=== PATIENT | female | born 1990 | race Caucasian/White ===

== ENCOUNTER 2017-03-23 17:42 | Emergency (ER) | payer OTHER, SELFPAY ==
[2017-03-23] MEDS ORDERED: methylPREDNISolone SOD SUCCI 125 MG/2 ML VIAL IM ONE (18:12)
[2017-03-23] MEDS ORDERED: IPRATROPIUM-ALBUTEROL 3 ML NEB INHALATION STA (18:12)
--- NOTE | 2017-03-23 18:18 | ED ---
General Adult HPI - General Chief complaint: Upper Respiratory Infection Stated complaint: Chest congestion/vomiting Time Seen by Provider: 03/23/17 18:06 Source: patient Mode of arrival: ambulatory Limitations: no limitations - History of Present Illness Initial comments: 26-year-old female patient presents to emergency department today with complaints of cough, nasal congestion, and facial pressure 1 month. Patient states that symptoms started about a month ago with nasal congestion and sore throat. Patient states that the cough has persisted. States she is coughing up green to yellow sputum. She states she does feel short of breath with this and has also had some posttussive vomiting on numerous occasions. She states she has had hot and cold flashes with no documented fevers. She states that she still has green nasal drainage with facial pressure. Patient states that she has been coughing so much that her abdominal muscles are sore. She states she is also having some bilateral "kidney pain". States the pain is in her bilateral flank and is a dull aching pain. She believes the pain may be from coughing. Patient denies any recent rash, chest pain, abdominal pain, nausea, diarrhea, constipation, numbness, tingling, dizziness, weakness, hematuria, dysuria, urinary urgency, urinary frequency, headache, visual changes, or any other complaints. Patient does admit to smoking at least 1 pack of cigarettes per day. She states there is a chance she is . - Related Data Previous Rx's Medication Instructions Recorded Albuterol Sulfate [Proair Hfa] 1 - 2 puff INHALATION Q6HR PRN #1 03/23/17 inhaler Amoxicillin/Potassium Clav 1 tab PO Q12HR #20 tab 03/23/17 [Augmentin 875-125 Tablet] methylPREDNISolone [Medrol Dose 4 mg PO DIRECTED #1 pack 03/23/17 Pack] Allergies Allergy/AdvReac Type Severity Reaction Status Date / Time ciprofloxacin [From Cipro] Allergy Rash/Hives Verified 03/23/17 18:55 Review of Systems ROS Statement: Those systems with pertinent positive or pertinent negative responses have been documented in the HPI. ROS Other: All systems not noted in ROS Statement are negative. Past Medical History Past Medical History: No Reported History History of Any Multi-Drug Resistant Organisms: None Reported Past Surgical History: No Surgical Hx Reported Past Psychological History: No Psychological Hx Reported Smoking Status: Current every day smoker Past Alcohol Use History: Occasional Past Drug Use History: None Reported General Exam Limitations: no limitations General appearance: alert, in no apparent distress, other (This is a well- developed, well-nourished female patient no acute distress. Vital signs upon presentation are temperature 98.5F, pulse 107, respirations 18, blood pressure 106/70, pulse ox 96% on room air.) Eye exam: Present: normal appearance, PERRL, EOMI. Absent: scleral icterus, conjunctival injection, periorbital swelling ENT exam: Present: normal exam, normal oropharynx, mucous membranes moist, TM's normal bilaterally Neck exam: Present: normal inspection, full ROM. Absent: tenderness, meningismus, lymphadenopathy Respiratory exam: Present: normal lung sounds bilaterally, wheezes (Scattered expiratory wheezes posterior lung mcclure). Absent: respiratory distress, rales , rhonchi, stridor Cardiovascular Exam: Present: regular rate, normal rhythm, normal heart sounds. Absent: systolic murmur, diastolic murmur, rubs, gallop, clicks GI/Abdominal exam: Present: soft, normal bowel sounds. Absent: distended, tenderness, guarding, rebound, rigid Back exam: Present: normal inspection, CVA tenderness (R), CVA tenderness (L) Neurological exam: Present: alert, oriented X3, CN II-XII intact Psychiatric exam: Present: normal affect, normal mood Skin exam: Present: warm, dry, intact, normal color. Absent: rash Course Vital Signs 03/23/17 03/23/17 03/23/17 17:59 18:53 18:57 Temperature 98.5 F Pulse Rate 107 H 104 H Respiratory 18 16 Rate Blood Pressure 106/70 O2 Sat by Pulse 96 Oximetry 03/23/17 19:06 Temperature Pulse Rate 108 H Respiratory Rate Blood Pressure O2 Sat by Pulse Oximetry Medical Decision Making - Medical Decision Making 26 old female patient presents to emergency department for evaluation of cough, nasal congestion and drainage 1 month. Chest x-ray was negative for any acute process. Symptoms are consistent with a acute sinusitis as well as acute bronchitis. Urinalysis is negative for any acute infection. Patient will be given a prescription for Augmentin for treatment of the sinusitis, she'll be given a Pro Air inhaler and steroids for treatment of bronchitis. She is instructed to follow-up with her primary care physician for recheck in 1-2 days. She is instructed to return here immediately for any new, worsening, or concerning symptoms. - Lab Data Lab Results 03/23/17 03/23/17 Range/Units 18:45 18:45 Urine Color Yellow Urine Appearance Clear (Clear) Urine pH 7.0 (5.0-8.0) Ur Specific [place] 1.018 (1.001-1.035) Urine Protein Trace H (Negative) Urine Glucose (UA) Negative (Negative) Urine Ketones Negative (Negative) Urine Blood Negative (Negative) Urine Nitrite Negative (Negative) Urine Bilirubin Negative (Negative) Urine Urobilinogen 3.0 (<2.0) mg/dL Ur Leukocyte Esterase Small H (Negative) Urine RBC 1 (0-5) /hpf Urine WBC 3 (0-5) /hpf Ur Squamous Epith Cells 4 (0-4) /hpf Urine Mucus Few H (None) /hpf Urine HCG, Qual Not Detected (Not Detectd) - Radiology Data Radiology results: report reviewed, image reviewed Frontal and lateral views of the chest are obtained, heart mediastinum are normal. Lungs are clear. Diaphragm is normal. Bony thorax is intact. Impression by Dr. Cabrera shows normal chest. Disposition Clinical Impression: Sinusitis, Bronchitis Disposition: HOME SELF-CARE Condition: Good Instructions: Sinusitis (ED), Acute Bronchitis (ED) Additional Instructions: Rest. Increase fluids. Take medications as directed. Follow up with your primary care physician in 1-2 days for a recheck. Return here immediately for any new, worsening, or concerning symptoms. Prescriptions: Albuterol Sulfate [Proair Hfa] 1 - 2 puff INHALATION Q6HR PRN #1 inhaler PRN Reason: Wheezing Amoxicillin/Potassium Clav [Augmentin 875-125 Tablet] 1 tab PO Q12HR #20 tab methylPREDNISolone [Medrol Dose Pack] 4 mg PO DIRECTED #1 pack Referrals: None,Stated [Primary Care Provider] - 1-2 days Time of Disposition: 19:25
[2017-03-23 18:52] LABS: Appearance,Urine Clear (Clear); Bilirubin,Urine Negative (Negative); Glucose,Urine (UA) Negative (Negative); Ketones,Urine Negative (Negative); Leukocyte Esterase,Urine Small (Negative); Mucus,Urine Few /hpf; Nitrite,Urine Negative (Negative); Particle Count 4923; Protein,Urine Trace (Negative); RBC,Urine 1 /hpf (0-5); Specific Gravity,Urine 1.018 (1.001-1.035); Squamous Epithelial Cell,Urine 4 /hpf (0-4); UA Billing (MACRO vs. MICRO) MICRO; WBC,Urine 3 /hpf (0-5)
--- NOTE | 2017-03-23 19:19 | XR ---
EXAMINATION TYPE: XR chest 2V DATE OF EXAM: 03/23/2017 COMPARISON: NONE HISTORY: Cough TECHNIQUE: Frontal and lateral views of the chest are obtained. FINDINGS: Heart and mediastinum are normal. Lungs are clear. Diaphragm is normal. Bony thorax is int act. IMPRESSION: Normal chest
[2017-03-23 20:16] VITALS: BP 110/72; PULSE 102; RESP 20; TEMP 98.6
== END 2017-03-23 20:16 | disposition home or self-care (01) ==
LOC: EC 17:42
DX: J32.9 Chronic sinusitis, unspecified (principal); J40 Bronchitis, not specified as acute or chronic; N23 Unspecified renal colic; F17.200 Nicotine dependence, unspecified, uncomplicated; Z88.1 Allergy status to other antibiotic agents
CPT/HCPCS: 99284 ×2; 96372 ×2; 94640; 81001; 81025; 71020; J2930

== ENCOUNTER 2018-02-25 17:50 | Inpatient (IN) | payer OTHER ==
[2018-02-25] MEDS ORDERED: IBUPROFEN 600 MG TAB PO STA (19:02)
[2018-02-25] MEDS ORDERED: ACETAMINOPHEN TAB 500 MG TAB PO STA (19:02)
[2018-02-25] MEDS ORDERED: ceFAZolin IN SWFI 2 GM/20 ML SYRINGE IVP STA (19:03)
--- NOTE | 2018-02-25 19:07 | ED ---
Skin/Abscess/FB HPI - General Chief complaint: Skin/Abscess/Foreign Body Stated complaint: Fever/dizzy/rt breast pain Time Seen by Provider: 02/25/18 18:55 Source: patient, RN notes reviewed, old records reviewed Mode of arrival: ambulatory Limitations: no limitations - History of Present Illness Initial comments: This Patient is a 27-year-old female 3 weeks post with chief complaint of right breast mastitis. Patient states that the redness and the lump her breast surgeon on . She reports that she has been feeling progressively worse. She's had a high fever and felt dizzy. Patient states that she's not had any recent Motrin or Tylenol. She is breast-feeding. She has been feeding from the breast despite the infection. Patient states that she has been very dizzy and lightheaded prior to arrival. As is patient's third . - Related Data Previous Rx's Medication Instructions Recorded Albuterol Sulfate [Proair Hfa] 1 - 2 puff INHALATION Q6HR PRN #1 03/23/17 inhaler Amoxicillin/Potassium Clav 1 tab PO Q12HR #20 tab 03/23/17 [Augmentin 875-125 Tablet] methylPREDNISolone [Medrol Dose 4 mg PO DIRECTED #1 pack 03/23/17 Pack] Allergies Allergy/AdvReac Type Severity Reaction Status Date / Time ciprofloxacin [From Cipro] Allergy Rash/Hives Verified 02/25/18 18:35 Review of Systems ROS Statement: Those systems with pertinent positive or pertinent negative responses have been documented in the HPI. ROS Other: All systems not noted in ROS Statement are negative. Past Medical History Past Medical History: No Reported History History of Any Multi-Drug Resistant Organisms: None Reported Past Surgical History: No Surgical Hx Reported Past Psychological History: No Psychological Hx Reported Smoking Status: Former smoker Past Alcohol Use History: None Reported Past Drug Use History: None Reported General Exam - General Exam Comments Initial Comments: Patient is a pleasant 27-year-old female. Alert and oriented. No significant distress. Limitations: no limitations General appearance: alert, in no apparent distress Head exam: Present: atraumatic, normocephalic, normal inspection Eye exam: Present: normal appearance, PERRL, EOMI. Absent: scleral icterus, conjunctival injection, periorbital swelling ENT exam: Present: normal exam, mucous membranes moist Neck exam: Present: normal inspection. Absent: tenderness, meningismus, lymphadenopathy Respiratory exam: Present: normal lung sounds bilaterally, other (Patient has evidence of cellulitis over the right breast measuring approximately 10 cm x 12 cm. Palpable abscess.). Absent: respiratory distress, wheezes, rales, rhonchi , stridor Cardiovascular Exam: Present: regular rate, normal rhythm, normal heart sounds. Absent: systolic murmur, diastolic murmur, rubs, gallop, clicks GI/Abdominal exam: Present: soft, normal bowel sounds. Absent: distended, tenderness, guarding, rebound, rigid Extremities exam: Present: normal inspection, full ROM, normal capillary refill. Absent: tenderness, pedal edema, joint swelling, calf tenderness Back exam: Present: normal inspection Neurological exam: Present: alert, oriented X3, CN II-XII intact Psychiatric exam: Present: normal affect, normal mood Skin exam: Present: warm, dry, intact, normal color. Absent: rash Course Vital Signs 02/25/18 02/25/18 02/25/18 18:32 19:25 19:30 Temperature 103.1 F H 103 F H Pulse Rate 126 H 123 H 96 Respiratory 18 18 18 Rate Blood Pressure 100/51 127/62 127/62 O2 Sat by Pulse 100 97 100 Oximetry 02/25/18 02/25/18 20:30 21:45 Temperature 99.5 F Pulse Rate 96 89 Respiratory 18 14 Rate Blood Pressure 100/58 100/59 O2 Sat by Pulse 96 97 Oximetry Medical Decision Making - Medical Decision Making Patient is a 27-year-old female 3 weeks , female. Patient has [employer] at this time. Patient hurts emergency room today with fever 103 concern for right breast mastitis. She reports no vaginal discharge or abdominal pain. Pelvic exam was performed and shows no significant tenderness or abnormal discharge. We did do cultures. Urinalysis is showing signs of infection. Urine culture obtained. She does have evidence of right breast mastitis. Patient source of fever is likely related to mastitis as well as the UTI. Patient was started on Initially We Did Switched to Zos[employer] for Better Coverage. Patient Was Admitted Time. Discussed Case with [employer]. She Also Recommends a Consult [employer]. - Lab Data Result diagrams: 02/25/18 19:14 02/25/18 19:14 Lab Results 02/25/18 02/25/18 02/25/18 Range/Units 19:14 19:14 19:14 WBC 11.5 H (3.8-10.6) k/uL RBC 4.10 (3.80-5.40) m/uL Hgb 11.2 L (11.4-16.0) gm/dL Hct 33.3 L (34.0-46.0) % MCV 81.3 (80.0-100.0) fL MCH 27.4 (25.0-35.0) pg MCHC 33.7 (31.0-37.0) g/dL RDW 13.7 (11.5-15.5) % Plt Count 217 (150-450) k/uL Neutrophils % 79 % Lymphocytes % 16 % Monocytes % 4 % Eosinophils % 0 % Basophils % 0 % Neutrophils # 9.0 H (1.3-7.7) k/uL Lymphocytes # 1.8 (1.0-4.8) k/uL Monocytes # 0.4 (0-1.0) k/uL Eosinophils # 0.0 (0-0.7) k/uL Basophils # 0.0 (0-0.2) k/uL PT (9.0-12.0) sec INR (<1.2) APTT (22.0-30.0) sec Sodium 128 L (137-145) mmol/L Potassium 3.4 L (3.5-5.1) mmol/L Chloride 95 L (98-107) mmol/L Carbon Dioxide 22 (22-30) mmol/L Anion Gap 11 mmol/L BUN 7 (7-17) mg/dL Creatinine 0.51 L (0.52-1.04) mg/dL Est GFR (CKD-EPI)AfAm >90 (>60 ml/min/1.73 sqM) Est GFR (CKD-EPI)NonAf >90 (>60 ml/min/1.73 sqM) Glucose 109 H (74-99) mg/dL Plasma Lactic Acid Sharath 0.9 (0.7-2.0) mmol/L Calcium 8.4 (8.4-10.2) mg/dL Total Bilirubin 0.5 (0.2-1.3) mg/dL AST 28 (14-36) U/L ALT 36 (9-52) U/L Alkaline Phosphatase 95 (38-126) U/L Total Protein 6.6 (6.3-8.2) g/dL Albumin 3.6 (3.5-5.0) g/dL Urine Color Urine Appearance (Clear) Urine pH (5.0-8.0) Ur Specific [place] (1.001-1.035) Urine Protein (Negative) Urine Glucose (UA) (Negative) Urine Ketones (Negative) Urine Blood (Negative) Urine Nitrite (Negative) Urine Bilirubin (Negative) Urine Urobilinogen (<2.0) mg/dL Ur Leukocyte Esterase (Negative) Urine RBC (0-5) /hpf Urine WBC (0-5) /hpf Ur Squamous Epith Cells (0-4) /hpf Amorphous Sediment (None) /hpf Urine Bacteria (None) /hpf Urine Mucus (None) /hpf Trichomonas Ag (Rapid) (Negative) 02/25/18 02/25/18 02/25/18 Range/Units 19:14 20:30 20:32 WBC (3.8-10.6) k/uL RBC (3.80-5.40) m/uL Hgb (11.4-16.0) gm/dL Hct (34.0-46.0) % MCV (80.0-100.0) fL MCH (25.0-35.0) pg MCHC (31.0-37.0) g/dL RDW (11.5-15.5) % Plt Count (150-450) k/uL Neutrophils % % Lymphocytes % % Monocytes % % Eosinophils % % Basophils % % Neutrophils # (1.3-7.7) k/uL Lymphocytes # (1.0-4.8) k/uL Monocytes # (0-1.0) k/uL Eosinophils # (0-0.7) k/uL Basophils # (0-0.2) k/uL PT 11.5 (9.0-12.0) sec INR 1.2 H (<1.2) APTT 33.7 H (22.0-30.0) sec Sodium (137-145) mmol/L Potassium (3.5-5.1) mmol/L Chloride (98-107) mmol/L Carbon Dioxide (22-30) mmol/L Anion Gap mmol/L BUN (7-17) mg/dL Creatinine (0.52-1.04) mg/dL Est GFR (CKD-EPI)AfAm (>60 ml/min/1.73 sqM) Est GFR (CKD-EPI)NonAf (>60 ml/min/1.73 sqM) Glucose (74-99) mg/dL Plasma Lactic Acid Sharath (0.7-2.0) mmol/L Calcium (8.4-10.2) mg/dL Total Bilirubin (0.2-1.3) mg/dL AST (14-36) U/L ALT (9-52) U/L Alkaline Phosphatase (38-126) U/L Total Protein (6.3-8.2) g/dL Albumin (3.5-5.0) g/dL Urine Color Yellow Urine Appearance Cloudy H (Clear) Urine pH 6.0 (5.0-8.0) Ur Specific [place] 1.011 (1.001-1.035) Urine Protein 1+ H (Negative) Urine Glucose (UA) Negative (Negative) Urine Ketones 2+ H (Negative) Urine Blood Moderate H (Negative) Urine Nitrite Negative (Negative) Urine Bilirubin Negative (Negative) Urine Urobilinogen <2.0 (<2.0) mg/dL Ur Leukocyte Esterase Large H (Negative) Urine RBC 1 (0-5) /hpf Urine WBC 79 H (0-5) /hpf Ur Squamous Epith Cells 30 H (0-4) /hpf Amorphous Sediment Rare H (None) /hpf Urine Bacteria Occasional H (None) /hpf Urine Mucus Rare H (None) /hpf Trichomonas Ag (Rapid) Negative (Negative) 02/25/18 19:51 EKG performed at 1941 shows sinus tachycardia with otherwise normal EKG. Ventricular rate of 109 bpm. MD interval is 162 ms. QRS duration 84. QT QTc is 354/476 most seconds. No evidence of ST elevation or T-wave inversion. No evidence of atrial or ventricular arrhythmias. - Radiology Data Radiology results: report reviewed No discrete solid or cystic mass identified in the right breast. No evidence of fluid collection. Normal chest x-ray no acute changes. Disposition Clinical Impression: Mastitis, Sepsis, UTI (urinary tract infection) Disposition: ADMITTED IP TO THIS [facility] Condition: Good Additional Instructions: Patient has follow-up with primary care physician. Return Referrals: None,Stated [Primary Care Provider] - 1-2 days Time of Disposition: 22:06
[2018-02-25] MEDS: SODIUM CHLORIDE 0.9% 1,000 ML IV SCH (19:23)
[2018-02-25 19:25] LABS: Basophils % (A) 0 %; Eosinophils % (A) 0 %; HCT 33.3 % (34.0-46.0); HGB 11.2 gm/dL (11.4-16.0); Lymphocytes # (A) 1.8 k/uL (1.0-4.8); Lymphocytes % (A) 16 %; MCH 27.4 pg (25.0-35.0); MCHC 33.7 g/dL (31.0-37.0); MCV 81.3 fL (80.0-100.0); Mean Platelet Volume 6.9; Monocytes # (A) 0.4 k/uL (0-1.0); Monocytes % (A) 4 %; Neutrophils % (A) 79 %; Platelet Count 217 k/uL (150-450); RDW 13.7 % (11.5-15.5); WBC 11.5 k/uL (3.8-10.6)
[2018-02-25] MEDS: SODIUM CHLORIDE 0.9% 500 ML IV SCH ×4 (19:25→21:35)
[2018-02-25 19:35] LABS: ALT 36 U/L (9-52); AST 28 U/L (14-36); Albumin 3.6 g/dL (3.5-5.0); Alkaline Phosphatase 95 U/L (38-126); Anion Gap 11 mmol/L; Blood Urea Nitrogen 7 mg/dL (7-17); Calcium 8.4 mg/dL (8.4-10.2); Carbon Dioxide 22 mmol/L (22-30); Chloride 95 mmol/L (98-107); Glucose 109 mg/dL (74-99); Potassium 3.4 mmol/L (3.5-5.1); Sodium 128 mmol/L (137-145); Total Bilirubin 0.5 mg/dL (0.2-1.3); Total Protein 6.6 g/dL (6.3-8.2)
[2018-02-25 19:38] LABS: INR 1.2 (<1.2); Partial Thromboplastin Time 33.7 sec (22.0-30.0); Prothrombin Time 11.5 sec (9.0-12.0)
--- NOTE | 2018-02-25 19:57 | XR ---
EXAMINATION TYPE: XR chest 2V DATE OF EXAM: 02/25/2018 COMPARISON: 03/23/2017 HISTORY: Fever TECHNIQUE: Frontal and lateral views of the chest are obtained. FINDINGS: Heart and mediastinum are normal. Lungs are clear. Diaphragm is normal. Bony thorax appear s intact. There are chest leads. IMPRESSION: Normal chest. No change.
--- NOTE | 2018-02-25 20:23 | USB ---
EXAMINATION TYPE: US breast limited RT DATE OF EXAM: 02/25/2018 COMPARISON: NONE CLINICAL HISTORY: Pain. Right breast pain and redness x 3 days. Fever patient is currently nursing rodriguez d a baby 3 weeks ago. Limited exam patient to follow up at [facility]. No abscess visualized on exam. IMPRESSION: No discrete solid or cystic masses identified. No evidence of a discrete fluid collectio n.
[2018-02-25 20:50] LABS: Amorphous Sediment,Urine Rare /hpf; Appearance,Urine Cloudy (Clear); Bacteria,Urine Occasional /hpf; Bilirubin,Urine Negative (Negative); Blood,Urine Moderate (Negative); Color,Urine Yellow; Glucose,Urine (UA) Negative (Negative); Ketones,Urine 2+ (Negative); Leukocyte Esterase,Urine Large (Negative); Mucus,Urine Rare /hpf; Nitrite,Urine Negative (Negative); Protein,Urine 1+ (Negative); RBC,Urine 1 /hpf (0-5); Specific Gravity,Urine 1.011 (1.001-1.035); Squamous Epithelial Cell,Urine 30 /hpf (0-4); Urobilinogen,Urine <2.0 mg/dL (<2.0); WBC,Urine 79 /hpf (0-5)
[2018-02-25] MEDS ORDERED: PIPERACILLIN-TAZOBACTAM 3.375 GM in DEXTROSE/WATER 1 50ML.BAG IVPB STA (21:34)
[2018-02-25] MEDS ORDERED: Acetaminophen-Codeine 300-30mg TAB PO PRN (22:06)
[2018-02-25] MEDS ORDERED: MORPHINE SULFATE 4 MG/ML SYRINGE IV PRN (22:06)
[2018-02-25] MEDS ORDERED: NALOXONE 0.4 MG/ML 1 ML VIAL IV PRN (22:06)
[2018-02-25] MEDS ORDERED: ACETAMINOPHEN TAB 325 MG TAB PO PRN (22:06)
[2018-02-25] MEDS ORDERED: ONDANSETRON 4 MG/2 ML VIAL IVP PRN (22:06)
[2018-02-25 23:40] VITALS: BMI 28.5
[2018-02-26] MEDS: SODIUM CHLORIDE 0.9% 1,000 ML IV SCH ×3 (01:36→21:51)
[2018-02-26] MEDS ORDERED: PANTOPRAZOLE 40 MG/10 ML VIAL IV SCH (09:00)
--- NOTE | 2018-02-26 10:07 | P.OBCN ---
History of Present Illness Consult date: 02/26/18 Reason for consult: other (3 weeks , no care, home delivery) Chief complaint: Fever, chills, mastitis, 3 weeks status post normal spontaneous vaginal del History of present illness: This is a pleasant 27-year-old 3 para 3003 that presents to [facility] ER with complaints of not feeling well. Patient stated high fever at home with concerns for mastitis. Patient was noted to be lightheaded on initial exam. She is noted to be 3 weeks from a normal spontaneous vaginal delivery at home. Patient states she had limited care in the beginning of the and the discontinued secondary to insurance reasons. Patient denies any complaints with the or concerns with delivery. She states her lochia has been minimal and up until now she was breast-feeding without difficulty. She has breastfed her other children without difficulty. Mood is discussed in detail and she states that she does struggle with depression after each childbirth and declines any treatment at this time, she states that improves after she discontinues breast-feeding. Review of Systems Constitutional: Reports fever, Reports lethargy, Reports weakness Breasts: Reports as per HPI, Reports breast feeding Cardiovascular: Denies leg edema Respiratory: Denies cough, Denies dyspnea Gastrointestinal: Denies constipation, Denies diarrhea Genitourinary: Denies abnormal vaginal bleeding Past Medical History Past Medical History: Asthma History of Any Multi-Drug Resistant Organisms: None Reported Past Surgical History: No Surgical Hx Reported Past Anesthesia/Blood Transfusion Reactions: No Reported Reaction Past Psychological History: No Psychological Hx Reported Smoking Status: Former smoker Past Alcohol Use History: None Reported Past Drug Use History: None Reported - Past Family History Mother Family Medical History: No Reported History Father Family Medical History: No Reported History Medications and Allergies Home Medications Medication Instructions Recorded Confirmed Type No Known Home Medications 02/25/18 02/25/18 History Allergies Allergy/AdvReac Type Severity Reaction Status Date / Time ciprofloxacin [From Cipro] Allergy Rash/Hives Verified 02/25/18 22:43 Exam Osteopathic Statement: *. No significant issues noted on an osteopathic structural exam other than those noted in the History and Physical/Consult. Vital Signs Temp Pulse Pulse Resp BP BP Pulse Ox 02/26/18 04:00 97.1 F L 02/25/18 23:36 97.9 F 88 16 96/59 96 02/25/18 22:34 85 18 98/56 99 02/25/18 21:45 99.5 F 89 14 100/59 97 02/25/18 20:30 96 18 100/58 96 02/25/18 19:30 96 18 127/62 100 02/25/18 19:25 103 F H 123 H 18 127/62 97 02/25/18 18:32 103.1 F H 126 H 18 100/51 100 Intake and Output 02/25/18 02/26/18 02/26/18 22:59 06:59 14:59 Other: # Voids 1 Weight 73.482 kg 75.3 kg - OBG Physical Exam Breast: Differential she is currently pumping Abdomen: Soft, nontender Results Result Diagrams: 02/25/18 19:14 02/25/18 19:14 Abnormal Lab Results - Last 24 Hours (Table) 02/25/18 02/25/18 02/25/18 Range/Units 19:14 19:14 19:14 WBC 11.5 H (3.8-10.6) k/uL Hgb 11.2 L (11.4-16.0) gm/dL Hct 33.3 L (34.0-46.0) % Neutrophils # 9.0 H (1.3-7.7) k/uL INR 1.2 H (<1.2) APTT 33.7 H (22.0-30.0) sec Sodium 128 L (137-145) mmol/L Potassium 3.4 L (3.5-5.1) mmol/L Chloride 95 L (98-107) mmol/L Creatinine 0.51 L (0.52-1.04) mg/dL Glucose 109 H (74-99) mg/dL Urine Appearance (Clear) Urine Protein (Negative) Urine Ketones (Negative) Urine Blood (Negative) Ur Leukocyte Esterase (Negative) Urine WBC (0-5) /hpf Ur Squamous Epith Cells (0-4) /hpf Amorphous Sediment (None) /hpf Urine Bacteria (None) /hpf Urine Mucus (None) /hpf 02/25/18 Range/Units 20:32 WBC (3.8-10.6) k/uL Hgb (11.4-16.0) gm/dL Hct (34.0-46.0) % Neutrophils # (1.3-7.7) k/uL INR (<1.2) APTT (22.0-30.0) sec Sodium (137-145) mmol/L Potassium (3.5-5.1) mmol/L Chloride (98-107) mmol/L Creatinine (0.52-1.04) mg/dL Glucose (74-99) mg/dL Urine Appearance Cloudy H (Clear) Urine Protein 1+ H (Negative) Urine Ketones 2+ H (Negative) Urine Blood Moderate H (Negative) Ur Leukocyte Esterase Large H (Negative) Urine WBC 79 H (0-5) /hpf Ur Squamous Epith Cells 30 H (0-4) /hpf Amorphous Sediment Rare H (None) /hpf Urine Bacteria Occasional H (None) /hpf Urine Mucus Rare H (None) /hpf Microbiology - Last 24 Hours (Table) 02/25/18 20:30 Genital Culture - Preliminary Cervix 02/25/18 20:32 Urine Culture - Preliminary Urine,Clean Catch Assessment and Plan (1) Status post vaginal delivery Current Visit: Yes Status: Acute Code(s): BOU8648 - SNOMED Code(s): 780391111 (2) No care in current Current Visit: Yes Status: Acute Code(s): O09.30 - SUPRVSN OF PREG W INSUFFICIENT ANTENAT CARE, UNSP TRIMESTER SNOMED Code(s): 6902273977094 (3) depression Current Visit: Yes Status: Acute Code(s): F53 - PUERPERAL PSYCHOSIS SNOMED Code(s): 77754476 (4) Mastitis Current Visit: Yes Status: Acute Code(s): N61.0 - MASTITIS WITHOUT ABSCESS SNOMED Code(s): 41555838 (5) Sepsis Current Visit: Yes Status: Acute Code(s): A41.9 - SEPSIS, UNSPECIFIED ORGANISM SNOMED Code(s): 25403547 (6) UTI (urinary tract infection) Current Visit: Yes Status: Acute Code(s): N39.0 - URINARY TRACT INFECTION, SITE NOT SPECIFIED SNOMED Code(s): 96352863 Plan: care is discussed. Patient's depression score is discussed and she declines any treatment for depression symptoms. Labs and vital signs are reviewed with patient and she states she is feeling slightly better but still complains of lightheadedness. Order slip is given to the nurse for electric breast pump. Thank you for this kind consult please reconsult if necessary
[2018-02-26] MEDS: PIPERACILLIN-TAZOBACTAM 3.375 GM in DEXTROSE/WATER 1 50ML.BAG IVPB SCH ×2 (16:42→23:55)
[2018-02-26 16:49] LABS: Anion Gap 6 mmol/L; Blood Urea Nitrogen 7 mg/dL (7-17); Calcium 8.1 mg/dL (8.4-10.2); Carbon Dioxide 21 mmol/L (22-30); Chloride 113 mmol/L (98-107); Glucose 94 mg/dL (74-99); Potassium 3.6 mmol/L (3.5-5.1); Sodium 140 mmol/L (137-145)
--- NOTE | 2018-02-26 20:30 | P.HPIM ---
History of Present Illness with a pleasant 27 yo F with pmh of asthma who presents of s/s of right breast mastitis, pt is , last one was about 3 wks ago as normal vaginal dilevery at home , she was breast feeding her child till about 4-5 days ago when she start complaining from her right breast which became progressively painful and swollen , associated with fever and chills over the last two days. pt is not breast feeding her baby. pt also complains from some dyspnea and dry coughing . labs on admission showing wbc of 11.5, Hb 11.2. Na 128 got corrected to 140, K 3.6. cr: 0.49. pt denies dysuria or change in urine frequency, her UA is suggestive of UTI, UC is pending on admission . pt is on antibiotic anyway. pt was feeling tearful , no intension to hurt self, pt has been evaluated by OB/ SWAT TEAM MEMBER team and pt denies therapy stating usually it resolves on it own. pt denies therapy to me too. Review of Systems REVIEW OF SYSTEMS: CONSTITUTIONAL: No fever, no malaise, no fatigue. HEENT: No recent visual problems or hearing problems. Denied any sore throat. CARDIOVASCULAR: No orthopnea, PND, no palpitations, no syncope. PULMONARY: No shortness of breath, no cough, no hemoptysis. GASTROINTESTINAL: No diarrhea, no nausea, no vomiting, no abdominal pain. Normoactive bowel sounds. NEUROLOGICAL: No headaches, no weakness, no numbness. HEMATOLOGICAL: Denies any bleeding or petechiae. GENITOURINARY: Denies any burning micturition, frequency, or urgency. MUSCULOSKELETAL/RHEUMATOLOGICAL: Denies any joint pain, swelling, or any muscle pain. ENDOCRINE: Denies any polyuria or polydipsia. medications : tylenol 650 mg , motrin 400 mg, teylenol #3 , morphine 4 mg iv, zofran 4 mg, zosyn 3.375 mg, protonix 40 mg Past Medical History Past Medical History: Asthma History of Any Multi-Drug Resistant Organisms: None Reported Past Surgical History: No Surgical Hx Reported Past Anesthesia/Blood Transfusion Reactions: No Reported Reaction Past Psychological History: No Psychological Hx Reported Smoking Status: Former smoker Past Alcohol Use History: None Reported Past Drug Use History: None Reported - Past Family History Mother Family Medical History: No Reported History Father Family Medical History: No Reported History Medications and Allergies Home Medications Medication Instructions Recorded Confirmed Type No Known Home Medications 02/25/18 02/25/18 History Allergies Allergy/AdvReac Type Severity Reaction Status Date / Time ciprofloxacin [From Cipro] Allergy Rash/Hives Verified 02/25/18 22:43 Physical Exam Vitals: Vital Signs Temp Pulse Pulse Resp BP BP Pulse Ox 02/26/18 12:35 98.1 F 83 17 105/70 99 02/26/18 09:25 97.8 F 92 12 96/64 98 02/26/18 04:00 97.1 F L 02/25/18 23:36 97.9 F 88 16 96/59 96 02/25/18 22:34 85 18 98/56 99 02/25/18 21:45 99.5 F 89 14 100/59 97 02/25/18 20:30 96 18 100/58 96 Intake and Output 02/26/18 02/26/18 02/26/18 06:59 14:59 22:59 Other: # Voids 1 3 # Bowel Movements 1 Weight 75.3 kg Physical exam ( done in the preence of the bed side MAYRA Villa, and upon pt permission) GENERAL: The patient is alert and oriented x3, not in any acute distress. Well developed, well nourished. HEENT: Pupils are round and equally reacting to light. EOMI. No scleral icterus. No conjunctival pallor. Normocephalic, atraumatic. No pharyngeal erythema. No thyromegaly. CARDIOVASCULAR: S1 and S2 present. No murmurs, rubs, or gallops. PULMONARY: Chest is clear to auscultation, no wheezing or crackles. -Right Breast showing erthema ,tenderness and swelling around the nipple , no open wound , no purulent discharge , No right axillary LAP ABDOMEN: Soft, nontender, nondistended, normoactive bowel sounds. No palpable organomegaly. MUSCULOSKELETAL: No joint swelling or deformity. EXTREMITIES: No cyanosis, clubbing, or pedal edema. NEUROLOGICAL: Gross neurological examination did not reveal any focal deficits. SKIN: No rashes. Results CBC & Chem 7: 02/25/18 19:14 02/26/18 16:26 Labs: Abnormal Lab Results - Last 24 Hours (Table) 02/25/18 02/25/18 02/25/18 Range/Units 19:14 19:14 19:14 WBC 11.5 H (3.8-10.6) k/uL Hgb 11.2 L (11.4-16.0) gm/dL Hct 33.3 L (34.0-46.0) % Neutrophils # 9.0 H (1.3-7.7) k/uL INR 1.2 H (<1.2) APTT 33.7 H (22.0-30.0) sec Sodium 128 L (137-145) mmol/L Potassium 3.4 L (3.5-5.1) mmol/L Chloride 95 L (98-107) mmol/L Carbon Dioxide (22-30) mmol/L Creatinine 0.51 L (0.52-1.04) mg/dL Glucose 109 H (74-99) mg/dL Calcium (8.4-10.2) mg/dL Urine Appearance (Clear) Urine Protein (Negative) Urine Ketones (Negative) Urine Blood (Negative) Ur Leukocyte Esterase (Negative) Urine WBC (0-5) /hpf Ur Squamous Epith Cells (0-4) /hpf Amorphous Sediment (None) /hpf Urine Bacteria (None) /hpf Urine Mucus (None) /hpf 02/25/18 02/26/18 Range/Units 20:32 16:26 WBC (3.8-10.6) k/uL Hgb (11.4-16.0) gm/dL Hct (34.0-46.0) % Neutrophils # (1.3-7.7) k/uL INR (<1.2) APTT (22.0-30.0) sec Sodium (137-145) mmol/L Potassium (3.5-5.1) mmol/L Chloride 113 H (98-107) mmol/L Carbon Dioxide 21 L (22-30) mmol/L Creatinine 0.49 L (0.52-1.04) mg/dL Glucose (74-99) mg/dL Calcium 8.1 L (8.4-10.2) mg/dL Urine Appearance Cloudy H (Clear) Urine Protein 1+ H (Negative) Urine Ketones 2+ H (Negative) Urine Blood Moderate H (Negative) Ur Leukocyte Esterase Large H (Negative) Urine WBC 79 H (0-5) /hpf Ur Squamous Epith Cells 30 H (0-4) /hpf Amorphous Sediment Rare H (None) /hpf Urine Bacteria Occasional H (None) /hpf Urine Mucus Rare H (None) /hpf Microbiology - Last 24 Hours (Table) 02/25/18 20:30 Genital Culture - Preliminary Cervix 02/25/18 20:32 Urine Culture - Preliminary Urine,Clean Catch Thrombosis Risk Factor Assmnt - Choose All That Apply Any of the Below Risk Factors Present?: Yes Each Factor Represents 1 point: or Other Risk Factors: No Thrombosis Risk Factor Assessment Total Risk Factor Score: 1 Thrombosis Risk Factor Assessment Level: Low Risk Assessment and Plan Assessment: SIRS, with leukocytosis and fever on admission right breast mastitis sepsis secondary to above s/p spontaneous vaginal delivery 3 wks ago post- depression hyponatremia possible UTI since admission Plan: pt is pleasant 27 yo F who presents with right mastitis. pt is treated with abx and iv fluids as pt was hypotenisive and dehydrated on admission . c/w iv fluids and zosyn . call ID consult . pt moimarylin for her s/s of depression , pt denies treatment. GAS ENGINE OPERATOR GENERATORS input is appreciated . continue with same treatment , continue with symptotmatic treatment . resume home medicaiton . GI and DVT prophylaxis , and further recommendation is based upon pt clinical progress DVT px heparin GI px pepcid
[2018-02-26] MEDS: FAMOTIDINE 20 MG/2 ML VIAL IV SCH (21:52)
[2018-02-26] MEDS: HEPARIN SODIUM,PORCINE 5,000 UNIT/ML 1 ML VIAL SQ SCH (21:56)
[2018-02-27] MEDS: IBUPROFEN 400 MG TAB PO PRN (07:25)
[2018-02-27 07:29] LABS: Basophils % (A) 0 %; Eosinophils # (A) 0.2 k/uL (0-0.7); Eosinophils % (A) 4 %; HCT 27.7 % (34.0-46.0); Hypochromasia Slight; Lymphocytes # (A) 1.7 k/uL (1.0-4.8); Lymphocytes % (A) 35 %; MCH 26.8 pg (25.0-35.0); MCHC 32.8 g/dL (31.0-37.0); MCV 81.6 fL (80.0-100.0); Mean Platelet Volume 7.9; Monocytes # (A) 0.3 k/uL (0-1.0); Monocytes % (A) 6 %; Neutrophils # (A) 2.5 k/uL (1.3-7.7); Neutrophils % (A) 52 %; Platelet Count 210 k/uL (150-450); RBC 3.39 m/uL (3.80-5.40); RDW 14.1 % (11.5-15.5); WBC 4.8 k/uL (3.8-10.6)
[2018-02-27] MEDS ORDERED: PANTOPRAZOLE 40 MG TABLET PO SCH (07:30)
[2018-02-27 07:38] LABS: HGB 9.1 gm/dL (11.4-16.0)
[2018-02-27] MEDS: SODIUM CHLORIDE 0.9% 1,000 ML IV SCH ×3 (07:57→17:48)
[2018-02-27 07:58] LABS: Anion Gap 7 mmol/L; Blood Urea Nitrogen 3 mg/dL (7-17); Carbon Dioxide 24 mmol/L (22-30); Chloride 110 mmol/L (98-107); Glucose 97 mg/dL (74-99); Potassium 3.5 mmol/L (3.5-5.1); Sodium 141 mmol/L (137-145)
[2018-02-27] MEDS: PIPERACILLIN-TAZOBACTAM 3.375 GM in DEXTROSE/WATER 1 50ML.BAG IVPB SCH (08:59)
[2018-02-27] MEDS: HEPARIN SODIUM,PORCINE 5,000 UNIT/ML 1 ML VIAL SQ SCH ×2 (09:00→20:52)
[2018-02-27] MEDS: FAMOTIDINE 20 MG/2 ML VIAL IV SCH ×2 (09:00→20:51)
--- NOTE | 2018-02-27 12:09 | P.PN ---
Subjective with a pleasant 27 yo F with pmh of asthma who presents of s/s of right breast mastitis, pt is , last one was about 3 wks ago as normal vaginal dilevery at home , she was breast feeding her child till about 4-5 days ago when she start complaining from her right breast which became progressively painful and swollen , associated with fever and chills over the last two days. pt is not breast feeding her baby. pt also complains from some dyspnea and dry coughing . labs on admission showing wbc of 11.5, Hb 11.2. Na 128 got corrected to 140, K 3.6. cr: 0.49. pt denies dysuria or change in urine frequency, her UA is suggestive of UTI, UC is pending on admission . pt is on antibiotic anyway. pt was feeling tearful , no intension to hurt self, pt has been evaluated by OB/ ASTRO TECHNICIAN team and pt denies therapy stating usually it resolves on it own. pt denies therapy to me too. 02/27/2018 Patient is seen and examined by me at bedside, in the presents NURSE Aldridge throughout the whole encounter including the physical examination. Patient still feeling generally weak. With some headache. With no new chest pain or dyspnea. Her right breast mastitis that looks regressing slightly, however there is no purulent discharge. Patient remains on Zosyn. ID team are going to see an outpatient. Patient states she has some difficulty with ambulating. We: Physical therapy and occupational therapy for evaluation Objective - Vital Signs Vital signs: Vital Signs Temp 98.2 F 02/27/18 09:01 Pulse 93 02/27/18 09:01 Resp 16 02/27/18 09:01 BP 106/68 02/27/18 09:01 Pulse Ox 97 02/27/18 09:01 Intake & Output 02/26/18 02/27/18 02/27/18 18:59 06:59 18:59 Other: # Voids 3 1 # Bowel Movements 1 - Exam Physical exam ( done in the preence of the bed side MAYRA Aldridge, and upon pt permission) GENERAL: The patient is alert and oriented x3, not in any acute distress. Well developed, well nourished. HEENT: Pupils are round and equally reacting to light. EOMI. No scleral icterus. No conjunctival pallor. Normocephalic, atraumatic. No pharyngeal erythema. No thyromegaly. CARDIOVASCULAR: S1 and S2 present. No murmurs, rubs, or gallops. PULMONARY: Chest is clear to auscultation, no wheezing or crackles. -Right Breast showing slightly improving erythema ,tenderness and swelling around the nipple , no open wound , no purulent discharge , No right axillary LAP ABDOMEN: Soft, nontender, nondistended, normoactive bowel sounds. No palpable organomegaly. MUSCULOSKELETAL: No joint swelling or deformity. EXTREMITIES: No cyanosis, clubbing, or pedal edema. NEUROLOGICAL: Gross neurological examination did not reveal any focal deficits. SKIN: No rashes. - Labs CBC & Chem 7: 02/27/18 07:14 02/27/18 07:14 Labs: Abnormal Lab Results - Last 24 Hours (Table) 02/26/18 02/27/18 02/27/18 Range/Units 16:26 07:14 07:14 RBC 3.39 L (3.80-5.40) m/uL Hgb 9.1 L D (11.4-16.0) gm/dL Hct 27.7 L (34.0-46.0) % Chloride 113 H 110 H (98-107) mmol/L Carbon Dioxide 21 L (22-30) mmol/L BUN 3 L (7-17) mg/dL Creatinine 0.49 L 0.46 L (0.52-1.04) mg/dL Calcium 8.1 L 8.0 L (8.4-10.2) mg/dL Microbiology - Last 24 Hours (Table) 02/25/18 20:30 Gram Stain - Final Cervix Genital Culture - Preliminary 02/25/18 20:32 Urine Culture - Final Urine,Clean Catch 02/25/18 19:14 Blood Culture - Preliminary Blood No Growth after 24 hours Assessment and Plan Assessment: SIRS, with leukocytosis and fever on admission right breast mastitis sepsis secondary to above s/p spontaneous vaginal delivery 3 wks ago post- depression hyponatremia possible UTI since admission Plan: pt is pleasant 27 yo F who presents with right mastitis. pt is treated with abx and iv fluids as pt was hypotenisive and dehydrated on admission . c/w iv fluids and zosyn . call ID consult . pt moitor for her s/s of depression , pt denies treatment. RETAIL FIELD MERCHANDISER input is appreciated . continue with same treatment , continue with symptotmatic treatment . resume home medicaiton . GI and DVT prophylaxis , and further recommendation is based upon pt clinical progress DVT px heparin GI px pepcid
[2018-02-27] MEDS ORDERED: MORPHINE ORAL SOLN 10 MG/5 ML CUP PO PRN (15:34)
[2018-02-27] MEDS: AMPICILLIN-SULBACTAM 3 GM in SODIUM CHLORIDE 0.9% 100 ML IVPB SCH (17:48)
--- NOTE | 2018-02-27 20:46 | CONS ---
CONSULTATION DATE OF SERVICE: 02/27/2018. REASON FOR CONSULTATION: 1. Right breast abscess cellulitis. 2. Patient with possible UTI. HISTORY OF PRESENT ILLNESS: The patient is a 27-year-old female who is 3 weeks . The patient over the last 1 week did develop pain swelling and redness to her right breast area. The area is becoming more swollen and red and painful. Pain described to be throbbing almost 7 to 8/10, and radiation. The patient denies any purulent discharge from her breast. Started having fever with rigors and chills. The patient has been with worsening symptoms. The patient did presented to the [facility] ER on 02/25/2018. The patient has been evaluated by the ER physician. On arrival to the ER, the patient did have a fever of 103.1 degrees Fahrenheit. The patient was tachycardiac with heart rates to 90s. The blood pressure was stable and at some point she did have a systolic of 96. The patient has been diagnosed with right breast cellulitis. The patient also has a positive UA, although she denies significant urinary symptoms. White count is elevated 11.5. She did have a breast ultrasound which was negative for any abscess or fluid collection. The patient has been admitted hospital. She was started on Zosyn. Infectious Disease was consulted for further recommendation regarding antibiotic therapy. REVIEW OF SYSTEMS: CONSTITUTIONAL: Positive for weakness along with the fever. EYES: No complaint. ENT: No complaint. RESPIRATORY: No complaint. CARDIOVASCULAR: No complaint. GENITOURINARY: No complaint. GASTROINTESTINAL: No complaint. MUSCULOSKELETAL: As per HPI. INTEGUMENTARY: As per HPI. PSYCHOLOGIC: No complaint. ENDOCRINE: No complaint. NEUROLOGIC: No complaint. PAST MEDICAL HISTORY: Asthma. PAST SURGICAL HISTORY: No major surgeries. SOCIAL HISTORY: Remote history of smoking. No drinking or drug use. FAMILY HISTORY: No pertinent findings noticed. ALLERGIES: CIPROFLOXACIN. MEDICATION: Medications include the patient is currently on Tylenol, codeine. She is on Zosyn, Pepcid, heparin, Motrin, morphine sulfate, Narcan, Zofran, Protonix. EXAMINATION: Blood pressure 106/68 with a pulse of 93, temperature 98.2. She is 97% on room air. General description is a young female lying in bed in no distress. No tachypnea or accessory muscle of respiration use. HEENT: Shows slight pallor. No scleral icterus. Oral mucous membranes dry. No pharyngeal erythema or thrush. NECK: Trachea central. No thyromegaly. LUNGS: Unlabored breathing, clear to auscultation anteriorly. No wheeze or crackle. HEART: S1, S2. Regular rate and rhythm. ABDOMEN: Soft, no tenderness, no rigidity. No organomegaly. EXTREMITIES: No edema of the feet. Examination of the right breast shows right lateral side with swelling, minimal redness, slightly warm to touch. No fluctuation or induration and no purulent drainage was noticed through the nipple. NEUROLOGICAL: The patient is awake, alert, oriented. Mood and affect normal. LABS: Hemoglobin is 9.1, white count of 11.5, BUN of 30, creatinine 0.46. Urine has been positive with large leukocyte esterases and 79 WBC. was negative. Breast ultrasound was negative for any abscess. DIAGNOSTIC IMPRESSION/PLAN: Patient in the hospital with sepsis and the patient did have a fever of 103 Fahrenheit. She was tachycardic and did have elevated white count. The source is right breast cellulitis with no evidence of any abscess. The likely organism to cover will be the gram-positive skin sanjeev and less likely gram-negative. The patient has not been on antibiotic in the recent past. PLAN: 1. We will discontinue the Zosyn. 2. Will start the patient on Unasyn 3 g every 6 hours. 3. Depending on her clinical response, as well as adjust the medication further if needed. Thank you for this consultation. We will follow the patient along with you. MMODL / IJN: [id number] /
[2018-02-28] MEDS: AMPICILLIN-SULBACTAM 3 GM in SODIUM CHLORIDE 0.9% 100 ML IVPB SCH ×4 (01:05→18:47)
[2018-02-28] MEDS: SODIUM CHLORIDE 0.9% 1,000 ML IV SCH (06:16)
[2018-02-28] MEDS: IBUPROFEN 400 MG TAB PO PRN (06:37)
[2018-02-28] MEDS: FAMOTIDINE 20 MG/2 ML VIAL IV SCH (07:22)
[2018-02-28 07:48] LABS: Basophils % (A) 0 %; Eosinophils # (A) 0.4 k/uL (0-0.7); Eosinophils % (A) 9 %; HCT 27.7 % (34.0-46.0); HGB 9.1 gm/dL (11.4-16.0); Hypochromasia Slight; Lymphocytes # (A) 1.8 k/uL (1.0-4.8); Lymphocytes % (A) 40 %; MCH 27.4 pg (25.0-35.0); MCHC 32.8 g/dL (31.0-37.0); MCV 83.5 fL (80.0-100.0); Mean Platelet Volume 7.7; Monocytes # (A) 0.2 k/uL (0-1.0); Monocytes % (A) 5 %; Neutrophils % (A) 43 %; Platelet Count 222 k/uL (150-450); Poikilocytosis Slight; RBC 3.31 m/uL (3.80-5.40); RDW 14.2 % (11.5-15.5); WBC 4.5 k/uL (3.8-10.6)
[2018-02-28 08:01] LABS: Anion Gap 6 mmol/L; Blood Urea Nitrogen 4 mg/dL (7-17); Calcium 8.3 mg/dL (8.4-10.2); Carbon Dioxide 26 mmol/L (22-30); Chloride 110 mmol/L (98-107); Glucose 91 mg/dL (74-99); Potassium 3.6 mmol/L (3.5-5.1); Sodium 142 mmol/L (137-145)
[2018-02-28 09:10] LABS: C. trachomatis,PCR Negative (Neg,Equiv); Chlamydia trachomatis Source Cervix; N. gonorrhoeae,PCR Negative (Neg,Equiv); Neisseria Source Cervix
[2018-02-28] MEDS ORDERED: BUTALB/APAP/CAFF 50-325-40MG TAB PO PRN (11:44)
--- NOTE | 2018-02-28 11:51 | P.PN ---
Subjective with a pleasant 27 yo F with pmh of asthma who presents of s/s of right breast mastitis, pt is , last one was about 3 wks ago as normal vaginal dilevery at home , she was breast feeding her child till about 4-5 days ago when she start complaining from her right breast which became progressively painful and swollen , associated with fever and chills over the last two days. pt is not breast feeding her baby. pt also complains from some dyspnea and dry coughing . labs on admission showing wbc of 11.5, Hb 11.2. Na 128 got corrected to 140, K 3.6. cr: 0.49. pt denies dysuria or change in urine frequency, her UA is suggestive of UTI, UC is pending on admission . pt is on antibiotic anyway. pt was feeling tearful , no intension to hurt self, pt has been evaluated by OB/ KNIFE FINISHER team and pt denies therapy stating usually it resolves on it own. pt denies therapy to me too. 02/27/2018 Patient is seen and examined by me at bedside, in the presents NURSE Oly throughout the whole encounter including the physical examination. Patient still feeling generally weak. With some headache. With no new chest pain or dyspnea. Her right breast mastitis that looks regressing slightly, however there is no purulent discharge. Patient remains on Zosyn. ID team are going to see an outpatient. Patient states she has some difficulty with ambulating. We: Physical therapy and occupational therapy for evaluation 03/02/2018 Patient erythema and swelling of her right breast mastitis is improving significantly, however she still have induration in the area. She still have some mild left-sided headache, patient states she has history of migraine. Furosemide will be started. Patient was been evaluated by physical therapy and she still feeling weak. Check her postural vitals: Pending Objective - Vital Signs Vital signs: Vital Signs Temp 98 F 02/28/18 07:58 Pulse 70 02/28/18 07:58 Resp 18 02/28/18 07:58 BP 103/70 02/28/18 07:58 Pulse Ox 99 02/28/18 07:58 Intake & Output 02/27/18 02/28/18 02/28/18 18:59 06:59 18:59 Intake Total 600 Balance 600 Intake: Oral 600 Other: # Voids 1 3 - Exam Physical exam ( done in the preence of the bed side MAYRA Aldridge, and upon pt permission) GENERAL: The patient is alert and oriented x3, not in any acute distress. Well developed, well nourished. HEENT: Pupils are round and equally reacting to light. EOMI. No scleral icterus. No conjunctival pallor. Normocephalic, atraumatic. No pharyngeal erythema. No thyromegaly. CARDIOVASCULAR: S1 and S2 present. No murmurs, rubs, or gallops. PULMONARY: Chest is clear to auscultation, no wheezing or crackles. -Right Breast showing improving erythema ,tenderness and swelling around the nipple , no open wound , no purulent discharge , No right axillary LAP ABDOMEN: Soft, nontender, nondistended, normoactive bowel sounds. No palpable organomegaly. MUSCULOSKELETAL: No joint swelling or deformity. EXTREMITIES: No cyanosis, clubbing, or pedal edema. NEUROLOGICAL: Gross neurological examination did not reveal any focal deficits. SKIN: No rashes. - Labs CBC & Chem 7: 02/28/18 07:30 02/28/18 07:30 Labs: Abnormal Lab Results - Last 24 Hours (Table) 02/28/18 02/28/18 Range/Units 07:30 07:30 RBC 3.31 L (3.80-5.40) m/uL Hgb 9.1 L (11.4-16.0) gm/dL Hct 27.7 L (34.0-46.0) % Chloride 110 H (98-107) mmol/L BUN 4 L (7-17) mg/dL Creatinine 0.41 L (0.52-1.04) mg/dL Calcium 8.3 L (8.4-10.2) mg/dL Microbiology - Last 24 Hours (Table) 02/25/18 19:14 Blood Culture - Preliminary Blood No Growth after 48 hours 02/25/18 20:30 Gram Stain - Final Cervix Genital Culture - Preliminary Assessment and Plan Assessment: SIRS, with leukocytosis and fever on admission right breast mastitis sepsis secondary to above s/p spontaneous vaginal delivery 3 wks ago post- depression hyponatremia possible UTI since admission Plan: pt is pleasant 27 yo F who presents with right mastitis. pt is treated with abx and iv fluids as pt was hypotenisive and dehydrated on admission . c/w iv fluids and zosyn . call ID consult . pt moitor for her s/s of depression , pt denies treatment. CAFETERIA AIDE input is appreciated . continue with same treatment , continue with symptotmatic treatment . resume home medicaiton . GI and DVT prophylaxis , and further recommendation is based upon pt clinical progress DVT px heparin GI px pepcid
[2018-02-28] MEDS ORDERED: ALBUTEROL NEBULIZED 2.5 MG/3 ML INHALATION PRN (13:47)
[2018-02-28] MEDS: ALBUTEROL NEBULIZED 2.5 MG/3 ML INHALATION PRN ×2 (15:36→20:16)
[2018-02-28] MEDS: FAMOTIDINE 20 MG TAB PO SCH (21:18)
[2018-02-28] MEDS: HEPARIN SODIUM,PORCINE 5,000 UNIT/ML 1 ML VIAL SQ SCH (21:18)
--- NOTE | 2018-02-28 23:14 | PN ---
PROGRESS NOTE DATE OF SERVICE: 02/28/2018. REASON FOR FOLLOWUP: Right breast cellulitis. INTERVAL HISTORY: The patient is afebrile. She is breathing comfortably. Pain to the right lateral side of the breast, slightly decreased in intensity. The patient denies having any chest pain, shortness of breath or cough. No abdominal pain. No diarrhea. EXAMINATION: Blood pressure 114/74, pulse of 64, temperature of 98.1, she is 100% on room air. GENERAL DESCRIPTION: A middle-aged female up in the bed in no distress. RESPIRATORY SYSTEM: Unlabored breathing. Clear to auscultation anteriorly. HEART: S1, S2. Regular rate and rhythm. BREASTS: Right breast remains to be swollen and indurated, but less than on admission. LABS: Hemoglobin 9.1, white count 4.5, BUN of 4, creatinine 0.41. DIAGNOSTIC IMPRESSION AND PLAN: Patient with right breast cellulitis. The patient is to continue on Unasyn. Cultures have been obtained. Documented pathogen. Re-evaluate the patient tomorrow. Continue supportive care. MMODL / IJN: [id number] /
[2018-03-01] MEDS: AMPICILLIN-SULBACTAM 3 GM in SODIUM CHLORIDE 0.9% 100 ML IVPB SCH ×4 (00:06→18:40)
[2018-03-01] MEDS: ALBUTEROL NEBULIZED 2.5 MG/3 ML INHALATION PRN ×3 (07:12→19:58)
[2018-03-01] MEDS: SODIUM CHLORIDE 0.9% 1,000 ML IV SCH ×4 (07:59→13:01)
[2018-03-01] MEDS: HEPARIN SODIUM,PORCINE 5,000 UNIT/ML 1 ML VIAL SQ SCH ×3 (08:01→22:00)
[2018-03-01] MEDS: FAMOTIDINE 20 MG TAB PO SCH ×2 (11:34→21:59)
--- NOTE | 2018-03-01 12:54 | P.PN ---
Subjective with a pleasant 27 yo F with pmh of asthma who presents of s/s of right breast mastitis, pt is , last one was about 3 wks ago as normal vaginal dilevery at home , she was breast feeding her child till about 4-5 days ago when she start complaining from her right breast which became progressively painful and swollen , associated with fever and chills over the last two days. pt is not breast feeding her baby. pt also complains from some dyspnea and dry coughing . labs on admission showing wbc of 11.5, Hb 11.2. Na 128 got corrected to 140, K 3.6. cr: 0.49. pt denies dysuria or change in urine frequency, her UA is suggestive of UTI, UC is pending on admission . pt is on antibiotic anyway. pt was feeling tearful , no intension to hurt self, pt has been evaluated by OB/ BUSINESS TECHNOLOGY ARCHITECT team and pt denies therapy stating usually it resolves on it own. pt denies therapy to me too. 02/27/2018 Patient is seen and examined by me at bedside, in the presents NURSE O[place] throughout the whole encounter including the physical examination. Patient still feeling generally weak. With some headache. With no new chest pain or dyspnea. Her right breast mastitis that looks regressing slightly, however there is no purulent discharge. Patient remains on Zosyn. ID team are going to see an outpatient. Patient states she has some difficulty with ambulating. We: Physical therapy and occupational therapy for evaluation 02/28/2018 Patient erythema and swelling of her right breast mastitis is improving significantly, however she still have induration in the area. She still have some mild left-sided headache, patient states she has history of migraine. Furosemide will be started. Patient was been evaluated by physical therapy and she still feeling weak. Check her postural vitals: Pending 03/01/2018 Patient still showing significant improvement on her right breast mastitis infection. Breast milk culture is still pending. She still feeling generally weak. However PT and OT evaluation was done and the patient does not need any physical or occupational therapy. Patient was instructed to follow up with her PCP in one week. Patient says she doesn't have a PCP but she has a DrRima MOSCOSO and see in [place] and she agrees with a recommendation to follow up in one week. Patient wants to make her own appointments with him. However she agrees to follow up with Dr. Flores from ID team in one week Objective - Vital Signs Vital signs: Vital Signs Temp 98.1 F 03/01/18 09:25 Pulse 78 03/01/18 09:25 Resp 20 03/01/18 09:25 BP 99/65 03/01/18 09:25 Pulse Ox 99 03/01/18 09:25 Intake & Output 02/28/18 03/01/18 03/01/18 18:59 06:59 18:59 Intake Total 700 1200 Balance 700 1200 Weight 75.3 kg Intake: Oral 700 1200 Other: # Voids 4 2 1 - Exam Physical exam ( done in the preence of the bed side MAYRA Aldridge, and upon pt permission) GENERAL: The patient is alert and oriented x3, not in any acute distress. Well developed, well nourished. HEENT: Pupils are round and equally reacting to light. EOMI. No scleral icterus. No conjunctival pallor. Normocephalic, atraumatic. No pharyngeal erythema. No thyromegaly. CARDIOVASCULAR: S1 and S2 present. No murmurs, rubs, or gallops. PULMONARY: Chest is clear to auscultation, no wheezing or crackles. -Right Breast showing significant improvement of erythema ,tenderness and swelling around the nipple , no open wound , no purulent discharge , No right axillary LAP ABDOMEN: Soft, nontender, nondistended, normoactive bowel sounds. No palpable organomegaly. MUSCULOSKELETAL: No joint swelling or deformity. EXTREMITIES: No cyanosis, clubbing, or pedal edema. NEUROLOGICAL: Gross neurological examination did not reveal any focal deficits. SKIN: No rashes. - Labs CBC & Chem 7: 02/28/18 07:30 02/28/18 07:30 Labs: Microbiology - Last 24 Hours (Table) 02/28/18 14:05 Gram Stain - Preliminary Breast - Right Wound Culture - Preliminary 02/25/18 19:14 Blood Culture - Preliminary Blood No Growth after 72 hours 02/25/18 20:30 Gram Stain - Final Cervix Genital Culture - Final Gardnerella vaginalis Assessment and Plan Assessment: SIRS, with leukocytosis and fever on admission right breast mastitis sepsis secondary to above s/p spontaneous vaginal delivery 3 wks ago post- depression hyponatremia possible UTI since admission Plan: pt is pleasant 27 yo F who presents with right mastitis. pt is treated with abx and iv fluids as pt was hypotenisive and dehydrated on admission . c/w iv fluids and zosyn . call ID consult . pt moitor for her s/s of depression , pt denies treatment. VETERINARY MILK SPECIALIST input is appreciated . continue with same treatment , continue with symptotmatic treatment . resume home medicaiton . GI and DVT prophylaxis , and further recommendation is based upon pt clinical progress DVT px heparin GI px pepcid
[2018-03-01 13:03] VITALS: RESP 16
--- NOTE | 2018-03-01 16:00 | PN ---
PROGRESS NOTE DATE OF SERVICE: 03/01/2018. REASON FOR FOLLOWUP: Right breast mastitis. INTERVAL HISTORY: The patient is currently afebrile. She is feeling better. Breathing comfortably. Denied breast pain and swelling has decreased. No purulence in the mid breast. No abdominal pain and no diarrhea. EXAMINATION: Blood pressure is 114/77 with a pulse of 84, temperature 98.2. She is 96% on room air. General description is a young female up in the bed in no distress. RESPIRATORY SYSTEM: Unlabored breathing. Clear to auscultation anteriorly. HEART: S1, S2. Regular rate and rhythm. ABDOMEN: Soft, no tenderness. RIGHT BREAST: Swelling and redness has decreased. Still has an area of induration but no fluctuation. LABS: No new labs have been obtained today though. The cultures currently pending. DIAGNOSTIC IMPRESSION AND PLAN: Patient with right breast mastitis. Patient currently covered with the Unasyn. That will be continued. Will wait for the culture to finalize to determine discharge antibiotic. Continue supportive care. MMODL / IJN: [id number] /
[2018-03-02] MEDS: AMPICILLIN-SULBACTAM 3 GM in SODIUM CHLORIDE 0.9% 100 ML IVPB SCH ×3 (00:12→17:01)
[2018-03-02] MEDS: ALBUTEROL NEBULIZED 2.5 MG/3 ML INHALATION PRN ×3 (07:24→16:00)
[2018-03-02 07:38] VITALS: TEMP 97.7
[2018-03-02] MEDS: HEPARIN SODIUM,PORCINE 5,000 UNIT/ML 1 ML VIAL SQ SCH (10:40)
[2018-03-02] MEDS: FAMOTIDINE 20 MG TAB PO SCH (10:40)
[2018-03-02 15:55] VITALS: BP 104/68
[2018-03-02 16:09] VITALS: PULSE 70
--- NOTE | 2018-03-02 16:28 | PN ---
PROGRESS NOTE DATE OF SERVICE: 03/02/2018. REASON FOR FOLLOWUP: Right breast cellulitis. INTERVAL HISTORY: The patient is currently afebrile. She is feeling better, breathing comfortably. The right breast pain swelling and redness has improved. Patient denies having any chest pain, shortness of breath or cough. No abdominal pain. No diarrhea. No vaginal drainage. EXAMINATION: Blood pressure 120/73 with a pulse of 60. Temperature 97.7. She is 99% on room air. General description is a middle-aged female up in the bed in no distress. RESPIRATORY SYSTEM: Unlabored breathing. Clear to auscultation anteriorly. HEART: S1, S2. Regular rate and rhythm. ABDOMEN: Soft, no tenderness. Right breast swelling and redness improved. Induration has significantly decreased. LABS: Hemoglobin 9.1, white count 4.5, BUN of 4, creatinine 0.41. DIAGNOSTIC IMPRESSION AND PLAN: Patient with right breast cellulitis clinically responded to the Unasyn. She will be transitioned to oral Augmentin 875 b.i.d. for 10 days with close outpatient followup. MMODL / IJN: [id number] /
--- NOTE | 2018-03-02 21:15 | P.DS ---
Providers Date of admission: 02/25/18 22:06 Attending physician: Leila Giang Consults: 02/25/18 22:06 Consult Physician Stat Consulting Provider: Michaela Leach Consult Reason/Comments: Mastitis, 3 weeks post , no care Do you want consulting provider notified?: Yes, Notify in am 02/26/18 16:23 Consult Physician Urgent Consulting Provider: Paddy Flores Consult Reason/Comments: r breast mastitis Do you want consulting provider notified?: Yes Primary care physician: Stated None Hospital Course: with a pleasant 27 yo F with pmh of asthma who presents of s/s of right breast mastitis, pt is , last one was about 3 wks ago as normal vaginal dilevery at home , she was breast feeding her child till about 4-5 days ago when she start complaining from her right breast which became progressively painful and swollen , associated with fever and chills over the last two days. pt is not breast feeding her baby. pt was feeling tearful , no intention to hurt self, pt has been evaluated by DIRECTOR OF SALES team and pt denies therapy stating usually it resolves on it own. pt denies therapy to me too. Patient was found to have right breast mastitis, and started on Zosyn. Later on changed to Unasyn with ID team input and recommendation. Patient showed interval improvement and her erythema, swelling and tenderness of the right breast was significantly improved. Right breast ultrasound showed no abscess. Right breast milk discharge showed: No organisms, few polymorphonuclear leukocytes, and rare normal skin sanjeev. Patient showed interval improvement and she has been evaluated by infectious disease and cleared for discharge. Patient will be discharged on Augmentin X 10 days as per ID recommendation. Her hospital course has been complicated by headache, and review of her migraine. Her headache is completely resolved on furosemide. Patient's on the day of discharge was mobile and her generalized weakness is significantly improved, physical therapy evaluation: No need for therapy Problems and management plan was discussed with the patient and she verbalized understanding and acceptance Patient was found stable and can be discharged home however she needs follow-up as an outpatient he agrees with the appointments and time and with ID office. Patient was instructed to breast feed her baby from the infected right side until she sees her doctor physical exam Physical exam ( done in the preence of the bed side AMYRA Roberts , and upon pt permission) GENERAL: The patient is alert and oriented x3, not in any acute distress. Well developed, well nourished. HEENT: Pupils are round and equally reacting to light. EOMI. No scleral icterus. No conjunctival pallor. Normocephalic, atraumatic. No pharyngeal erythema. No thyromegaly. CARDIOVASCULAR: S1 and S2 present. No murmurs, rubs, or gallops. PULMONARY: Chest is clear to auscultation, no wheezing or crackles. -Right Breast showing solving erythema ,tenderness and swelling around the right nipple , no open wound , no purulent discharge , No right axillary LAP ABDOMEN: Soft, nontender, nondistended, normoactive bowel sounds. No palpable organomegaly. MUSCULOSKELETAL: No joint swelling or deformity. EXTREMITIES: No cyanosis, clubbing, or pedal edema. NEUROLOGICAL: Gross neurological examination did not reveal any focal deficits. SKIN: No rashes. Time spent more than 35 minutes Patient Condition at Discharge: Good Plan - Discharge Summary Discharge Rx Participant: Yes New Discharge Prescriptions: New Amoxic-Pot Clav 875-125Mg [Augmentin 875-125] 1 tab PO Q12HR #20 tablet Acetaminophen Tab [Tylenol] 650 mg PO Q6HR PRN tab PRN Reason: Mild Pain Or Fever > 100.5 Discharge Medication List Acetaminophen Tab [Tylenol] 650 mg PO Q6HR PRN tab 03/02/18 [Rx] Amoxic-Pot Clav 875-125Mg [Augmentin 875-125] 1 tab PO Q12HR #20 tablet [Rx] Follow up Appointment(s)/Referral(s): None,Stated [Primary Care Provider] - 1-2 days Paddy Flores MD [STAFF PHYSICIAN] - 03/11/18 2:15 pm Patient Instructions/Handouts: Mastitis (DC), Mastitis (GEN) Activity/Diet/Wound Care/Special Instructions: Patient has follow-up with primary care physician. Return please do not breast feed your baby from your right breast till you see your doctor Continue to pump. Good handwashing. Call Dr Flores if you develop a fever, chills, increased swelling of breast, or if you have any other questions or concerns. Augmentin may cause upset stomach. Eat yogurt twice daily or take a probiotic. Discharge Disposition: HOME SELF-CARE
== END 2018-03-02 18:35 | disposition home or self-care (01) | DRG 776 ==
LOC: EC 17:50 → 6PED 22:06
PROVIDERS: ADMIT Hospitalist; ATTEND Hospitalist
DX: O85 Puerperal sepsis (principal); E87.1 Hypo-osmolality and hyponatremia; N39.0 Urinary tract infection, site not specified; O91.22 Nonpurulent mastitis associated with the puerperium; B96.89 Other specified bacterial agents as the cause of diseases classified elsewhere; E86.0 Dehydration; F53 Mental and behavioral disorders associated with the puerperium, not elsewhere classified; G43.909 Migraine, unspecified, not intractable, without status migrainosus; J45.909 Unspecified asthma, uncomplicated; Z87.891 Personal history of nicotine dependence; Z88.1 Allergy status to other antibiotic agents
CPT/HCPCS: 36415; 71046; 80048; 80053; 81001; 83605; 85025; 85610; 85730; 87040; 87070; 87086; 87205; 87491; 87591; 87808; 93005; 94640; 96361; 96365; 96375; 99285

== ENCOUNTER 2018-07-16 21:36 | Inpatient (IN) | payer OTHER ==
[2018-07-16] MEDS ORDERED: IPRATROPIUM-ALBUTEROL 3 ML NEB INHALATION STA ×2 (21:56→23:16)
[2018-07-16] MEDS ORDERED: SODIUM CHLORIDE 0.9% 1,000 ML IV STA (21:58)
[2018-07-16 22:30] LABS: ALT 32 U/L (9-52); AST 23 U/L (14-36); Albumin 4.5 g/dL (3.5-5.0); Alkaline Phosphatase 76 U/L (38-126); Anion Gap 8 mmol/L; Blood Urea Nitrogen 14 mg/dL (7-17); Calcium 9.6 mg/dL (8.4-10.2); Carbon Dioxide 24 mmol/L (22-30); Chloride 108 mmol/L (98-107); Glucose 105 mg/dL (74-99); Potassium 4.5 mmol/L (3.5-5.1); Sodium 140 mmol/L (137-145); Total Bilirubin 0.4 mg/dL (0.2-1.3); Total Protein 7.3 g/dL (6.3-8.2)
[2018-07-16 22:39] LABS: D-Dimer 0.39 mg/L FEU (<0.60); Partial Thromboplastin Time 28.3 sec (22.0-30.0)
[2018-07-16 22:42] LABS: Anisocytosis Slight; Basophils # (A) 0.1 k/uL (0-0.2); Basophils % (A) 1 %; Creatine Kinase 69 U/L (30-135); Eosinophils # (A) 2.6 k/uL (0-0.7); Eosinophils % (A) 24 %; HCT 41.7 % (34.0-46.0); HGB 13.7 gm/dL (11.4-16.0); Lymphocytes # (A) 3.7 k/uL (1.0-4.8); Lymphocytes % (A) 34 %; MCH 24.5 pg (25.0-35.0); MCHC 32.9 g/dL (31.0-37.0); MCV 74.3 fL (80.0-100.0); Mean Platelet Volume 6.8; Microcytosis Moderate; Monocytes # (A) 0.5 k/uL (0-1.0); Monocytes % (A) 5 %; Neutrophils # (A) 3.7 k/uL (1.3-7.7); Neutrophils % (A) 34 %; Platelet Count 294 k/uL (150-450); RBC 5.61 m/uL (3.80-5.40); RDW 16.9 % (11.5-15.5); WBC 10.9 k/uL (3.8-10.6)
--- NOTE | 2018-07-16 22:51 | ED ---
General Adult HPI - General Chief complaint: Shortness of Breath Stated complaint: SOB Time Seen by Provider: 07/16/18 21:51 Source: patient, RN notes reviewed, old records reviewed Mode of arrival: ambulatory Limitations: no limitations - History of Present Illness Initial comments: 27-year-old female patient with past history of tubal ligation, asthma presents to ED with approximately 1 month of productive cough, presumed asthma exacerbation. Patient reports that for the last month she has been using her albuterol inhaler multiple times per day. Patient additionally had a productive cough which is coughing up mucus on a daily basis. Patient does smoke cigarettes. Patient states that she does have some generalized anterior and posterior scapular pain with coughing. Patient denies any chest pain at rest or any pleuritic chest pain. However patient does report that she feels some chest tightness at baseline, patient states that this feels similar to her asthma exacerbations in the past. Patient denies any abdominal pain, nausea vomiting or diarrhea. Patient denies having been previously hospitalized for an asthma exacerbation. Patient denies any use of oral contraceptives or exogenous hormones, patient denies any recent prolonged travel, patient denies any history of cancer, patient denies any posterior calf tenderness. Patient denies other complaints. Systemic: Pt denies fatigue, myalgia, fever/chills, rash. Pt denies weakness, night sweats, weight loss. Neuro: Pt denies headache, visual disturbances, syncope or pre-syncope. HEENT: Pt denies ocular discharge or irritation, otalgia, rhinorrhea, pharyngitis or notable lymphadenopathy. Cardiopulmonary: Pt denies heart palpitations. Abdominal/GI: Pt denies abdominal pain, n/v/d. : Pt denies dysuria, burning w/ urination, frequency/urgency. Denies new onset urinary or bowel incontinence. MSK: Pt denies myalgia, loss of strength or function in extremities. Neuro: Pt denies new onset weakness, paresthesias. - Related Data Home Medications Medication Instructions Recorded Confirmed Albuterol Inhaler [Ventolin Hfa 2 puff INHALATION RT-Q6H PRN 07/16/18 07/16/18 Inhaler] Fluticasone Nasal [place] [Flonase 1 spray EA NOSTRIL DAILY PRN 07/16/18 07/16/18 Nasal [place]] Multivitamins, Thera [Multivitamin 1 tab PO DAILY 07/16/18 07/16/18 (formulary)] [place]-3/Dha/Epa/Fish Oil [Fish Oil 1 cap PO HS 07/16/18 07/16/18 500 mg Softgel] [place]-3S/Dha/Epa/Fish Oil/D3 [Fish 1 tab PO QAM 07/16/18 07/16/18 Oil Gummies] Allergies Allergy/AdvReac Type Severity Reaction Status Date / Time ciprofloxacin [From Cipro] Allergy Rash/Hives Verified 07/16/18 22:03 Review of Systems ROS Statement: Those systems with pertinent positive or pertinent negative responses have been documented in the HPI. ROS Other: All systems not noted in ROS Statement are negative. Past Medical History Past Medical History: Asthma History of Any Multi-Drug Resistant Organisms: None Reported Past Surgical History: Tubal Ligation Past Anesthesia/Blood Transfusion Reactions: No Reported Reaction Past Psychological History: No Psychological Hx Reported Smoking Status: Current every day smoker Past Alcohol Use History: Rare Past Drug Use History: None Reported - Past Family History Mother Family Medical History: No Reported History Father Family Medical History: No Reported History General Exam - General Exam Comments Initial Comments: Constitutional: NAD, AOX3, Pt has pleasant affect. HEENT: NC/AT, trachea midline, neck supple, no lymphadenopathy. Posterior pharynx non erythematous, without exudates. External ears appear normal, without discharge. Mucous membranes moist. Eyes PERRLA, EOM intact. There is no scleral icterus. No pallor noted. Cardiopulmonary: RRR, no murmurs, rubs or gallops, no JVD noted. Mild amount of wheezing in anterior lung mcclure, resolved after breathing treatment. Lungs clear to auscultation bilaterally pulse breathing treatment in anterior and posterior mcclure. No peripheral edema. Abdominal exam: Abdomen soft and non-distended. Abdomen non-tender to palpation in all 4 quadrants. Bowel sounds active in LLQ. No hepatosplenomegaly. No ecchymosis Neuro: CN II-XII grossly intact. No nuchal rigidity. MSK: No posterior calf tenderness bilaterally, homans sign negative bilaterally. Posterior tibialis and radial pulse +2 bilaterally. Sensation intact in upper and lower extremities. Full active ROM in upper and lower extremities, 5/5 stregnth. Limitations: no limitations Course Vital Signs 07/16/18 07/16/18 07/16/18 21:41 22:04 22:09 Temperature 98.2 F Pulse Rate 109 H 92 98 Respiratory 21 14 14 Rate Blood Pressure 116/82 O2 Sat by Pulse 97 Oximetry 07/16/18 07/16/18 23:18 23:26 Temperature Pulse Rate 105 H 94 Respiratory Rate Blood Pressure O2 Sat by Pulse Oximetry Medical Decision Making - Medical Decision Making 27-year-old female patient with past history of tubal ligation, asthma presents to ED with approximately 1 month of productive cough, presumed asthma exacerbation. Patient reports that for the last month she has been using her albuterol inhaler multiple times per day. Patient additionally had a productive cough which is coughing up mucus on a daily basis. Patient additionally complained of some baseline chest tightness, some anterior and posterior chest pain with coughing. Patient denies other complaints. Patient vital signs displayed mild tachycardia. Patient had some mild wheezing on exam , required multiple breathing treatments in ED. Patient left investigations revealed non-impressive CBC, CMP, d-dimer negative, troponin negative, CK-MB within normal limits. Chest x-ray displayed no acute process. EKG not concerning for acute ischemia. Patient to be admitted for asthma exacerbation. Case discussed in depth with Dr. Ewing. - Lab Data Result diagrams: 07/16/18 22:06 07/16/18 22:06 Lab Results 07/16/18 07/16/18 07/16/18 Range/Units 22:06 22:06 22:06 WBC 10.9 H (3.8-10.6) k/uL RBC 5.61 H (3.80-5.40) m/uL Hgb 13.7 (11.4-16.0) gm/dL Hct 41.7 (34.0-46.0) % MCV 74.3 L (80.0-100.0) fL MCH 24.5 L (25.0-35.0) pg MCHC 32.9 (31.0-37.0) g/dL RDW 16.9 H (11.5-15.5) % Plt Count 294 (150-450) k/uL Neutrophils % 34 % Lymphocytes % 34 % Monocytes % 5 % Eosinophils % 24 % Basophils % 1 % Neutrophils # 3.7 (1.3-7.7) k/uL Lymphocytes # 3.7 (1.0-4.8) k/uL Monocytes # 0.5 (0-1.0) k/uL Eosinophils # 2.6 H (0-0.7) k/uL Basophils # 0.1 (0-0.2) k/uL Manual Slide Review Performed Poikilocytosis (manual Present Anisocytosis Slight Microcytosis Moderate PT (9.0-12.0) sec INR (<1.2) APTT (22.0-30.0) sec D-Dimer (<0.60) mg/L FEU Sodium 140 (137-145) mmol/L Potassium 4.5 (3.5-5.1) mmol/L Chloride 108 H (98-107) mmol/L Carbon Dioxide 24 (22-30) mmol/L Anion Gap 8 mmol/L BUN 14 (7-17) mg/dL Creatinine 0.97 (0.52-1.04) mg/dL Est GFR (CKD-EPI)AfAm >90 (>60 ml/min/1.73 sqM) Est GFR (CKD-EPI)NonAf 81 (>60 ml/min/1.73 sqM) Glucose 105 H (74-99) mg/dL Calcium 9.6 (8.4-10.2) mg/dL Total Bilirubin 0.4 (0.2-1.3) mg/dL AST 23 (14-36) U/L ALT 32 (9-52) U/L Alkaline Phosphatase 76 (38-126) U/L Total Creatine Kinase 69 (30-135) U/L CK-MB (CK-2) 0.4 (0.0-2.4) ng/mL CK-MB (CK-2) Rel Index 0.6 Troponin I <0.012 (0.000-0.034) ng/mL Total Protein 7.3 (6.3-8.2) g/dL Albumin 4.5 (3.5-5.0) g/dL 07/16/18 Range/Units 22:06 WBC (3.8-10.6) k/uL RBC (3.80-5.40) m/uL Hgb (11.4-16.0) gm/dL Hct (34.0-46.0) % MCV (80.0-100.0) fL MCH (25.0-35.0) pg MCHC (31.0-37.0) g/dL RDW (11.5-15.5) % Plt Count (150-450) k/uL Neutrophils % % Lymphocytes % % Monocytes % % Eosinophils % % Basophils % % Neutrophils # (1.3-7.7) k/uL Lymphocytes # (1.0-4.8) k/uL Monocytes # (0-1.0) k/uL Eosinophils # (0-0.7) k/uL Basophils # (0-0.2) k/uL Manual Slide Review Poikilocytosis (manual Anisocytosis Microcytosis PT 11.0 (9.0-12.0) sec INR 1.0 (<1.2) APTT 28.3 (22.0-30.0) sec D-Dimer 0.39 (<0.60) mg/L FEU Sodium (137-145) mmol/L Potassium (3.5-5.1) mmol/L Chloride (98-107) mmol/L Carbon Dioxide (22-30) mmol/L Anion Gap mmol/L BUN (7-17) mg/dL Creatinine (0.52-1.04) mg/dL Est GFR (CKD-EPI)AfAm (>60 ml/min/1.73 sqM) Est GFR (CKD-EPI)NonAf (>60 ml/min/1.73 sqM) Glucose (74-99) mg/dL Calcium (8.4-10.2) mg/dL Total Bilirubin (0.2-1.3) mg/dL AST (14-36) U/L ALT (9-52) U/L Alkaline Phosphatase (38-126) U/L Total Creatine Kinase (30-135) U/L CK-MB (CK-2) (0.0-2.4) ng/mL CK-MB (CK-2) Rel Index Troponin I (0.000-0.034) ng/mL Total Protein (6.3-8.2) g/dL Albumin (3.5-5.0) g/dL - EKG Data -: EKG Interpreted by Me EKG Comments: ventricular rate 93, IL interval 160, QRS 86, QT/QTc 366/455. Normal sinus rhythm, normal EKG. Disposition Clinical Impression: Asthma exacerbation Disposition: ADMITTED IP TO THIS HOSP Condition: Serious Is patient prescribed a controlled substance at d/c from ED?: No Referrals: Blanca Timmons MD [Primary Care Provider] - 1-2 days
[2018-07-16 22:55] LABS: Creatine Kinase MB 0.4 ng/mL (0.0-2.4); Troponin I <0.012 ng/mL (0.000-0.034)
[2018-07-16] MEDS ORDERED: methylPREDNISolone SOD SUCCI 125 MG/2 ML VIAL IV STA (22:55)
[2018-07-16 23:17] LABS: Poikilocytosis (M) Present
--- NOTE | 2018-07-16 23:18 | XR ---
EXAMINATION TYPE: XR chest 2V DATE OF EXAM: 07/16/2018 COMPARISON: 02/25/2018 HISTORY: Difficulty breathing TECHNIQUE: Frontal and lateral views of the chest are obtained. FINDINGS: Heart and mediastinum are normal. Lungs are clear. Diaphragm is normal. Bony thorax appear s normal. IMPRESSION: Normal chest. No change.
[2018-07-17] MEDS ORDERED: ACETAMINOPHEN TAB 325 MG TAB PO PRN (00:12)
[2018-07-17] MEDS ORDERED: NALOXONE 0.4 MG/ML 1 ML VIAL IV PRN (00:12)
--- NOTE | 2018-07-17 01:06 | P.HPIM ---
History of Present Illness H&P Date: 07/17/18 Chief Complaint: Shortness of breath coughing and wheezing 27-year-old female with history of intermittent asthma Patient presented with one-week history of worsening shortness of breath and coughing, she's been requiring breathing treatments every hour, cough worsened and associated with clear yellowish sputum and associated with some pleuritic chest pain nowadays denies any sore throat patient reports some runny nose denies any muscle aches. Denies any fevers or chills. She reports that she's been coughing for the past month since the weather has changed. Patient denies having any more old or allergens at home but they do use with his stove for heating in her room is usually very cold. Before that and over the 2018 she denies any ER visits for asthma exacerbations she denies any history of intubation and normally she rarely uses her rescue inhaler. Patient otherwise denies any fevers or chills, denies any chest pain, denies any abdominal pain, denies any nausea vomiting changes in her bowel or urinary habits. She denies any recent traveling, denies any recent hospitalization, denies any immobility, denies any history of cancer, denies using oral contraceptive pills. Initially upon presentation to the ED per ER physician she was wheezing which has required multiple breathing treatments. Review of Systems Pertinent positives as noted in HPI. All other systems were reviewed and are negative Past Medical History Past Medical History: Asthma History of Any Multi-Drug Resistant Organisms: None Reported Past Surgical History: Tubal Ligation Past Anesthesia/Blood Transfusion Reactions: No Reported Reaction Past Psychological History: No Psychological Hx Reported Smoking Status: Current every day smoker Past Alcohol Use History: Rare Past Drug Use History: None Reported - Past Family History Mother Family Medical History: No Reported History Father Family Medical History: No Reported History Medications and Allergies Home Medications Medication Instructions Recorded Confirmed Type Albuterol Inhaler [Ventolin Hfa 2 puff INHALATION RT-Q6H PRN 07/16/18 07/16/18 History Inhaler] Fluticasone Nasal [place] [Flonase 1 spray EA NOSTRIL DAILY PRN 07/16/18 07/16/18 History Nasal [place]] Multivitamins, Thera [Multivitamin 1 tab PO DAILY 07/16/18 07/16/18 History (formulary)] [place]-3/Dha/Epa/Fish Oil [Fish Oil 1 cap PO HS 07/16/18 07/16/18 History 500 mg Softgel] [place]-3S/Dha/Epa/Fish Oil/D3 [Fish 1 tab PO QAM 07/16/18 07/16/18 History Oil Gummies] Allergies Allergy/AdvReac Type Severity Reaction Status Date / Time ciprofloxacin [From Cipro] Allergy Rash/Hives Verified 07/16/18 22:03 Physical Exam Vitals: Vital Signs Temp Pulse Resp BP Pulse Ox 07/16/18 23:40 108 H 16 98/66 99 07/16/18 23:26 94 07/16/18 23:18 105 H 07/16/18 22:40 98 19 111/70 93 L 07/16/18 22:10 92 16 114/86 97 07/16/18 22:09 98 14 07/16/18 22:04 92 14 07/16/18 22:00 98 14 117/81 96 07/16/18 21:52 99 07/16/18 21:41 98.2 F 109 H 21 116/82 97 Intake and Output 07/16/18 07/16/18 07/17/18 14:59 22:59 06:59 Other: Weight 76.204 kg Constitutional: No acute distress, conversant, pleasant Eyes: Anicteric sclerae, moist conjunctiva, no lid-lag Pupils equal round reactive to light ENMT: NC/AT Oropharynx clear, no erythema, exudates Neck: Supple, FROM, no masses, or JVD No carotid bruits No thyromegaly Lungs: Good breath sounds bilaterally, scattered expiratory wheezes on the frontal aspect of the lungs Clear to percussion Normal respiratory effort, no accessory muscle use Cardiovascular: Heart regular in rate and rhythm, No murmurs, gallops, or rubs No peripheral edema Abdominal: Soft Nontender, no guarding, rebound or rigidity Abdomen moving with respiration Normoactive bowel sounds No hepatomegaly, No splenomegaly No palpable mass No abdominal wall hernia noted Skin: Normal temperature, tone, texture, turgor No induration No subcutaneous nodules No rash, lesions No ulcers Extremities: No digital cyanosis No clubbing Pedal pulses intact and symmetrical Radial pulses intact and symmetrical No calf tenderness Psychiatric: Alert and oriented to person, place and time Appropriate affect fair judgement Neuro Muscles Strength 5/5 in all 4 extremities Sensation to light touch grossly present throughout Cranial nerves II-XII grossly intact No focal sensory deficits Lymphatics: no palpable cervical or supraclavicular , or inguinal lymph nodes Results CBC & Chem 7: 07/16/18 22:06 07/16/18 22:06 Labs: Abnormal Lab Results - Last 24 Hours (Table) 07/16/18 07/16/18 Range/Units 22:06 22:06 WBC 10.9 H (3.8-10.6) k/uL RBC 5.61 H (3.80-5.40) m/uL MCV 74.3 L (80.0-100.0) fL MCH 24.5 L (25.0-35.0) pg RDW 16.9 H (11.5-15.5) % Eosinophils # 2.6 H (0-0.7) k/uL Chloride 108 H (98-107) mmol/L Glucose 105 H (74-99) mg/dL Assessment and Plan Assessment: 27-year-old female with intermittent asthma admitted as an observation with anticipated length of stay less than 48 hours due to acute asthma exacerbation Plan: Acute asthma exacerbation Systemic steroids Albuterol nebulizer when necessary [place] Supplemental oxygen as needed DVT prophylaxis heparin subcu 3 times a day Surrogate decision-maker: Father CODE STATUS: Full code Discussed with: Patient, ER Anticipated discharge: <[address]: Home A total of 55 minutes was spent on the care of this complex patient more than 50 % of the time was spent in counseling and care coordination.
[2018-07-17 01:30] VITALS: BMI 28.0
[2018-07-17] MEDS: SODIUM CHLORIDE 0.9% 1,000 ML IV SCH ×2 (01:58→23:38)
[2018-07-17] MEDS: methylPREDNISolone SOD SUCCI 125 MG/2 ML VIAL IV SCH ×4 (06:10→23:37)
[2018-07-17] MEDS: ALBUTEROL NEBULIZED 2.5 MG/3 ML INHALATION PRN ×5 (07:28→23:56)
[2018-07-17] MEDS: NICOTINE 21MG/24HR PATCH TRANSDERM SCH ×2 (09:15→09:18)
[2018-07-17] MEDS: HEPARIN SODIUM,PORCINE 5,000 UNIT/ML 1 ML VIAL SQ SCH ×4 (09:15→23:37)
[2018-07-17] MEDS: AZITHROMYCIN 500 MG TAB PO SCH (09:16)
[2018-07-17 10:43] LABS: Appearance,Urine Clear (Clear); Bilirubin,Urine Negative (Negative); Blood,Urine Negative (Negative); Color,Urine Yellow; Glucose,Urine (UA) 4+ (Negative); Ketones,Urine Trace (Negative); Leukocyte Esterase,Urine Negative (Negative); Nitrite,Urine Negative (Negative); Protein,Urine Trace (Negative); Specific Gravity,Urine 1.026 (1.001-1.035)
--- NOTE | 2018-07-17 16:35 | P.PN ---
Progress Note - Text Progress Note Date: 07/17/18 Patient seen and examined at 4:30 PM. No acute events overnight. Seen ambulating the hallway.patient continues to report shortness of breath and wheezing. Will continue present management. Likely discharge in 1-2 days.
[2018-07-18] MEDS: methylPREDNISolone SOD SUCCI 125 MG/2 ML VIAL IV SCH ×3 (05:52→18:23)
[2018-07-18] MEDS: ALBUTEROL NEBULIZED 2.5 MG/3 ML INHALATION PRN ×4 (06:02→21:06)
[2018-07-18] MEDS: AZITHROMYCIN 500 MG TAB PO SCH (08:45)
[2018-07-18] MEDS: NICOTINE 21MG/24HR PATCH TRANSDERM SCH (08:45)
[2018-07-18] MEDS: HEPARIN SODIUM,PORCINE 5,000 UNIT/ML 1 ML VIAL SQ SCH ×2 (08:45→16:00)
--- NOTE | 2018-07-18 16:09 | P.PN ---
Subjective Progress Note Date: 07/18/18 Principal diagnosis: Asthma exacerbation Patient seen and examined. No acute events overnight. Patient reports minimal improvement in her breathing. She continues to complain of shortness of breath and wheezing. Her boyfriend is at bedside. She continues to complain of cough. No chest pain or palpitations. Quite not back to baseline as of yet. Objective - Vital Signs Vital signs: Vital Signs Temp 97.6 F 07/18/18 12:20 Pulse 102 H 07/18/18 12:20 Resp 18 07/18/18 12:20 BP 107/54 07/18/18 12:20 Pulse Ox 94 L 07/18/18 12:20 Intake & Output 07/17/18 07/18/18 07/18/18 18:59 06:59 18:59 Intake Total 1000 Balance 1000 Intake: Oral 1000 Other: Voiding Method Toilet Toilet # Voids 1 2 - Exam General: [non toxic], [no distress], [appears at stated age] Derm: [warm], [dry] Head: [atraumatic], [normocephalic], [symmetric] Eyes: [EOMI], [no lid lag], [anicteric sclera] Mouth: [no lip lesion], [mucus membranes moist] Cardiovascular: [S1S2 reg], [tachycardia], [positive DP pulse bilateral] Lungs: [End expiratory wheezing bilateral], [no rhonchi, no rales] , [no accessory muscle use] Abdominal: [soft], [ nontender to palpation], [no guarding], [no appreciable organomegaly] Ext: [no gross muscle atrophy], [no edema], [no contractures] Neuro: [no focal neuro deficits] Psych: [Alert], [oriented], [appropriate affect] - Labs CBC & Chem 7: 07/16/18 22:06 07/16/18 22:06 Assessment and Plan Assessment: Assessment and plan 1. Asthma exacerbation 2. Tachycardia We'll continue albuterol nebulizer as needed for shortness of breath or wheezing. Continue Solu-Medrol 60 g IV every 6 hours. Treatment for acute bronchitis with azithromycin 500 mg by mouth daily. Oxygen per nasal cannula to maintain oxygen saturation in the 92%. Tachycardia is likely related to asthma exacerbation. Optimize asthma medications. Patient continues to feel short of breath. She is pending clinical improvement.
[2018-07-18] MEDS: SODIUM CHLORIDE 0.9% 1,000 ML IV SCH (18:24)
[2018-07-18 21:47] VITALS: RESP 16
[2018-07-19] MEDS: HEPARIN SODIUM,PORCINE 5,000 UNIT/ML 1 ML VIAL SQ SCH ×2 (00:01→08:58)
[2018-07-19] MEDS: ALBUTEROL NEBULIZED 2.5 MG/3 ML INHALATION PRN ×2 (03:47→08:34)
[2018-07-19] MEDS: methylPREDNISolone SOD SUCCI 125 MG/2 ML VIAL IV SCH ×2 (06:08)
[2018-07-19] MEDS: NICOTINE 21MG/24HR PATCH TRANSDERM SCH (08:58)
[2018-07-19] MEDS: AZITHROMYCIN 500 MG TAB PO SCH (09:11)
[2018-07-19 09:45] VITALS: BP 123/65; PULSE 103; TEMP 98.1
--- NOTE | 2018-07-19 10:25 | P.DS ---
Providers Date of admission: 07/18/18 08:26 Expected date of discharge: 07/19/18 Attending physician: Itzel Alaniz MD Primary care physician: [facility] Course: 27-year-old female with history of intermittent asthma Patient presented with one-week history of worsening shortness of breath and coughing, she's been requiring breathing treatments every hour, cough worsened and associated with clear yellowish sputum and associated with some pleuritic chest pain nowadays denies any sore throat patient reports some runny nose denies any muscle aches. Denies any fevers or chills. She reports that she's been coughing for the past month since the weather has changed. Patient denies having any more old or allergens at home but they do use with his stove for heating in her room is usually very cold. Before that and over the 2018 she denies any ER visits for asthma exacerbations she denies any history of intubation and normally she rarely uses her rescue inhaler. With regard to her asthma exacerbation she was given albuterol nebulizer as needed for shortness of breath or wheezing. She was started on Solu-Medrol 60 mg IV every 6 hours. She was treated for possible acute bronchitis with azithromycin 500 mg daily for 3 days. She was given oxygen per nasal cannula to maintain oxygen saturation greater than 92%. Patient was seen and examined prior to discharge. No acute events overnight. Patient reports improvement in her breathing over the last few days. She is able to walk up and down the hallways without any difficulties. She denies any chest pain, shortness of breath or palpitations. She is looking for to going home. General: [non toxic], [no distress], [appears at stated age] Derm: [warm], [dry] Head: [atraumatic], [normocephalic], [symmetric] Eyes: [EOMI], [no lid lag], [anicteric sclera] Mouth: [no lip lesion], [mucus membranes moist] Cardiovascular: [S1S2 reg], [tachycardia], [positive DP pulse bilateral] Lungs: [Clear to auscultation bilateral], [no rhonchi, no rales] , [no accessory muscle use] Abdominal: [soft], [ nontender to palpation], [no guarding], [no appreciable organomegaly] Ext: [no gross muscle atrophy], [no edema], [no contractures] Neuro: [no focal neuro deficits] Psych: [Alert], [oriented], [appropriate affect] Assessment and plan 1. Asthma exacerbation 2. Tachycardia We'll continue albuterol nebulizer as needed for shortness of breath or wheezing. Continue Solu-Medrol 60 g IV every 6 hours. Treatment for acute bronchitis with azithromycin 500 mg by mouth daily. Oxygen per nasal cannula to maintain oxygen saturation in the 92%. Tachycardia is likely related to asthma exacerbation. Optimize asthma medications. Patient has follow-up with her primary care provider within 1-2 days of discharge. Pertinent Studies: Chest x-ray Patient Condition at Discharge: Stable Plan - Discharge Summary Discharge Rx Participant: Yes New Discharge Prescriptions: New Albuterol Nebulized [Ventolin Nebulized] 2.5 mg INHALATION Q4HR PRN #30 nebu PRN Reason: Shortness Of Breath Or Wheezing Continue [place]-3/Dha/Epa/Fish Oil [Fish Oil 500 mg Softgel] 1 cap PO HS [place]-3S/Dha/Epa/Fish Oil/D3 [Fish Oil Gummies] 1 tab PO QAM Multivitamins, Thera [Multivitamin (formulary)] 1 tab PO DAILY Albuterol Inhaler [Ventolin Hfa Inhaler] 2 puff INHALATION RT-Q6H PRN #1 inh PRN Reason: Shortness Of Breath Discontinued Fluticasone Nasal [place] [Flonase Nasal [place]] 1 spray EA NOSTRIL DAILY PRN PRN Reason: Nasal Congestion Discharge Medication List Multivitamins, Thera [Multivitamin (formulary)] 1 tab PO DAILY 07/16/18 [History ] [place]-3/Dha/Epa/Fish Oil [Fish Oil 500 mg Softgel] 1 cap PO HS 07/16/18 [History ] [place]-3S/Dha/Epa/Fish Oil/D3 [Fish Oil Gummies] 1 tab PO QAM 07/16/18 [History] Albuterol Inhaler [Ventolin Hfa Inhaler] 2 puff INHALATION RT-Q6H PRN #1 inh 07/06 [Rx] Albuterol Nebulized [Ventolin Nebulized] 2.5 mg INHALATION Q4HR PRN #30 nebu 07/06 [Rx] Follow up Appointment(s)/Referral(s): Blanca Timmons MD [Primary Care Provider] - 1-2 days Activity/Diet/Wound Care/Special Instructions: Diet regular Please follow-up with your primary care provider within 1-2 days of discharge. Please take all medications as advised. Discharge Disposition: HOME SELF-CARE
== END 2018-07-19 11:52 | disposition home or self-care (01) | DRG 203 ==
LOC: EC 21:36 → 6PED 07-17 → OBSVTOIN 07-18 08:26 → 6PED 07-18 21:41
PROVIDERS: ADMIT Internal Medicine; ATTEND Internal Medicine
DX: J45.21 Mild intermittent asthma with (acute) exacerbation (principal); F17.210 Nicotine dependence, cigarettes, uncomplicated; J20.9 Acute bronchitis, unspecified; Z98.51 Tubal ligation status; Z79.51 Long term (current) use of inhaled steroids; Z79.899 Other long term (current) drug therapy; Z88.1 Allergy status to other antibiotic agents
CPT/HCPCS: 36415; 71046; 80053; 81003; 81025; 82550; 82553; 84484; 85025; 85379; 85610; 85730; 93005; 94640; 96361; 96374; 99285

== ENCOUNTER 2023-02-19 22:20 | Emergency (ER) | payer OTHER ==
--- NOTE | 2023-02-19 22:36 | ED ---
Dizziness HPI - General Chief Complaint: Dizziness Stated Complaint: Dizzy spells Time Seen by Provider: 02/19/23 22:30 Source: patient, RN notes reviewed, old records reviewed Mode of arrival: ambulatory Limitations: no limitations - History of Present Illness Initial Comments: This is a 32-year-old female to the emergency department today she presents for evaluation today. Patient presents today for evaluation of multiple complaints. Patient has abdominal pain back pain pain down right leg. Patient also complains of dizziness lightheadedness room spinning and feels like she can maintain her balance. Patient has fallen multiple times today. Patient also admits to mild nausea. Patient has no significant medical history, patient has never had prior symptoms of severe dizziness and vertigo and falls. she has prior admitted to having some patient does admit to similar symptoms like this with prior rupture of ovarian cyst. MD Complaint: dizziness, lightheadedness, difficulty walking -: hour(s) Timing: gradual onset Description: "room spinning", lightheadedness History of Same: No History of Trauma: No Severity: moderate Improves With: nothing Worsens With: nothing Associated Symptoms: weakness - Related Data Home Medications Medication Instructions Recorded Confirmed Multivitamins, Thera [Multivitamin 1 tab PO DAILY 07/16/18 07/16/18 (formulary)] [place]-3/Dha/Epa/Fish Oil [Fish Oil 1 cap PO HS 07/16/18 07/16/18 500 mg Softgel] [place]-3S/Dha/Epa/Fish Oil/D3 [Fish 1 tab PO QAM 07/16/18 07/16/18 Oil Gummies] Previous Rx's Medication Instructions Recorded Albuterol Inhaler [Ventolin Hfa 2 puff INHALATION RT-Q6H PRN #1 inh 07/19/18 Inhaler] Albuterol Nebulized [Ventolin 2.5 mg INHALATION Q4HR PRN #30 nebu 07/19/18 Nebulized] predniSONE 50 mg PO DAILY #2 tab 07/20/18 Allergies Allergy/AdvReac Type Severity Reaction Status Date / Time ciprofloxacin [From Cipro] Allergy Rash/Hives Verified 02/19/23 22:27 Review of Systems ROS Statement: Those systems with pertinent positive or pertinent negative responses have been documented in the HPI. ROS Other: All systems not noted in ROS Statement are negative. Past Medical History Past Medical History: Asthma History of Any Multi-Drug Resistant Organisms: None Reported Past Surgical History: Tubal Ligation Past Anesthesia/Blood Transfusion Reactions: No Reported Reaction Past Psychological History: No Psychological Hx Reported Smoking Status: Current every day smoker Past Alcohol Use History: Rare Past Drug Use History: None Reported - Past Family History Mother Family Medical History: No Reported History Father Family Medical History: No Reported History General Exam Limitations: no limitations General appearance: alert, in no apparent distress, anxious Head exam: Present: atraumatic, normocephalic, normal inspection Eye exam: Present: normal appearance, PERRL, EOMI, nystagmus. Absent: scleral icterus, conjunctival injection, periorbital swelling ENT exam: Present: normal exam, mucous membranes moist Neck exam: Present: normal inspection. Absent: tenderness, meningismus, lymphadenopathy Respiratory exam: Present: normal lung sounds bilaterally. Absent: respiratory distress, wheezes, rales, rhonchi, stridor Cardiovascular Exam: Present: normal rhythm, tachycardia, normal heart sounds. Absent: systolic murmur, diastolic murmur, rubs, gallop, clicks GI/Abdominal exam: Present: soft, normal bowel sounds. Absent: distended, tenderness, guarding, rebound, rigid Extremities exam: Present: normal inspection, full ROM, normal capillary refill. Absent: tenderness, pedal edema, joint swelling, calf tenderness Back exam: Present: normal inspection Neurological exam: Present: alert, oriented X3, CN II-XII intact Psychiatric exam: Present: normal affect, normal mood Skin exam: Present: warm, dry, intact, normal color. Absent: rash Course Vital Signs 02/19/23 02/19/23 02/20/23 22:25 23:00 00:00 Temperature 97.8 F Pulse Rate 104 H 85 93 Respiratory 18 16 17 Rate Blood Pressure 129/80 103/76 96/67 O2 Sat by Pulse 99 98 Oximetry 02/20/23 02/20/23 02:00 02:44 Temperature 98.0 F Pulse Rate 86 78 Respiratory 19 17 Rate Blood Pressure 102/68 105/72 O2 Sat by Pulse 96 97 Oximetry - Reevaluation(s) Reevaluation #1: 02/19/23 22:57 Record is reviewed Reevaluation #2: 02/20/23 02:35 Patient has no real change in symptoms here in the ER but she is sleeping pain is controlled and resting comfortably Reevaluation #3: 02/20/23 02:35 Patient informed results and questions are answered Reevaluation #4: 02/19/23 22:58 Was pt. sent in by a medical professional or institution (LALITHA Young, BUSINESS ANALYSIS PROFESSIONAL, urgent care, hospital, or long term...) When possible be specific @ -no Did you speak to anyone other than the patient for history (EMS, parent, family, police, friend...)? What history was obtained from this source @ -no Did you review nursing and triage notes (agree or disagree)? Why? @ -agree Are old charts reviewed (outside hosp., previous admission, EMS record, old EKG, old radiological studies, urgent care reports/EKG's, long term records)? Report findings @ -yes Differential Diagnosis (chest pain, altered mental status, abdominal pain women, abdominal pain men, vaginal bleeding, weakness, fever, dyspnea, syncope, headache, dizziness, GI bleed, back pain, seizure, CVA, palpatations, mental health, musculoskeletal)? @ -prior EKG interpreted by me (3pts min.). @ -yes X-rays interpreted by me (1pt min.). @ -no CT interpreted by me (1pt min.). @ -yes U/S interpreted by me (1pt. min.). @ -no What testing was considered but not performed or refused? (CT, X-rays, U/S, labs)? Why? @ -none What meds were considered but not given or refused? Why? @ -none Did you discuss the management of the patient with other professionals (professionals i.e. LALITHA Young, BUSINESS ANALYSIS PROFESSIONAL, lab, RT, psych nurse, child welfare social worker, astronautical engineer, teacher, money position officer, case management coordinator)? Give summary @ -no Was smoking cessation discussed for >3mins.? @ -no Was critical care preformed (if so, how long)? @ -no Were there social determinants of health that impacted care today? How? (Homelessness, low income, unemployed, alcoholism, drug addiction, transportation, low edu. Level, literacy, decrease access to med. care, group home, rehab)? @ -none Was there de-escalation of care discussed even if they declined (Discuss DNR or withdrawal of care, Hospice)? DNR status @ -no What co-morbidities impacted this encounter? (DM, HTN, Smoking, COPD, CAD, Cancer, CVA, ARF, Chemo, Hep., AIDS, mental health diagnosis, sleep apnea, morbid obesity)? @ -none Was patient admitted / discharged? Hospital course, mention meds given and route, prescriptions, significant lab abnormalities, going to OR and other pertinent info. @ - 32 female to the emergency department for evaluation who presents today for evaluation regards to dizziness vertiginous symptoms back pain abdominal pain with concern for ovarian cyst rupture. Patient non no cyst rupture lumbar disc herniation pain causing acute back pain. And peripheral vertigo. CT brain is negative CT scan abdomen pelvis is otherwise negative and patient can be discharged home Discharge Undiagnosed new problem with uncertain prognosis? @ -no Drug Therapy requiring intensive monitoring for toxicity (Heparin, Nitro, Insulin, Cardizem)? @ -no Were any procedures done? @ -no Diagnosis/symptom? @ -Ovarian cyst rupture with dizziness with vertigo Acute, or Chronic, or Acute on Chronic? @ -Acute Uncomplicated (without systemic symptoms) or Complicated (systemic symptoms)? @ -Complicated Side effects of treatment? @ -no Exacerbation, Progression, or Severe Exacerbation? @ -exacerbation Poses a threat to life or bodily function? How? (Chest pain, USA, ME, pneumonia, PE, COPD, DKA, ARF, appy, cholecystitis, CVA, Diverticulitis, Homicidal, Suicidal, threat to staff... and all critical care pts) @ -no Reevaluation #5: 02/19/23 22:58 Differential Dizziness: Benign paroxysmal positional Vertigo, Menieres disease, otitis media, acoustic neuroma, vertebrobasilar insufficiency, cerebellar stroke, encephalitis, hypovolemic, arrhythmia, coronary artery syndrome, anemia, this is not meant to be an all-inclusive list Differential Back Pain: Strain, zoster, cauda equina syndrome, epidural abscess, vertebral osteomyelitis, discitis, fracture, subluxation, disc herniation, DJD, spinal stenosis, dissection, AAA, pancreatitis, peptic ulcer disease, pyelonephritis, kidney stone, this is not meant to be an all-inclusive list. EKG Findings - EKG Comments: EKG Findings:: EKG is sinus 84 NE 159 QRS 85 QTc 399 - EKG Results: EKG: interpreted by RADHAD Medical Decision Making - Medical Decision Making 32 female to the emergency department for evaluation who presents today for evaluation regards to dizziness vertiginous symptoms back pain abdominal pain with concern for ovarian cyst rupture. Patient non no cyst rupture lumbar disc herniation pain causing acute back pain. And peripheral vertigo. CT brain is negative CT scan abdomen pelvis is otherwise negative and patient can be discharged home - Lab Data Result diagrams: 02/19/23 23:00 02/19/23 23:00 Lab Results 02/19/23 02/19/23 02/19/23 Range/Units 23:00 23:00 23:00 WBC 8.0 (3.8-10.6) k/uL RBC 4.57 (3.80-5.40) m/uL Hgb 13.9 (11.4-16.0) gm/dL Hct 40.9 (34.0-46.0) % MCV 89.5 (80.0-100.0) fL MCH 30.4 (25.0-35.0) pg MCHC 33.9 (31.0-37.0) g/dL RDW 12.3 (11.5-15.5) % Plt Count 190 (150-450) k/uL MPV 7.6 Neutrophils % 30 % Lymphocytes % 55 % Monocytes % 6 % Eosinophils % 8 % Basophils % 0 % Neutrophils # 2.4 (1.3-7.7) k/uL Lymphocytes # 4.4 (1.0-4.8) k/uL Monocytes # 0.5 (0-1.0) k/uL Eosinophils # 0.6 (0-0.7) k/uL Basophils # 0.0 (0-0.2) k/uL PT 10.9 (9.0-12.0) sec INR 1.0 (<1.2) APTT 27.2 (22.0-30.0) sec Sodium 138 (137-145) mmol/L Potassium 3.9 (3.5-5.1) mmol/L Chloride 106 (98-107) mmol/L Carbon Dioxide 24 (22-30) mmol/L Anion Gap 8 mmol/L BUN 8 (7-17) mg/dL Creatinine 0.60 (0.52-1.04) mg/dL Est GFR (CKD-EPI)AfAm >90 (>60 ml/min/1.73 sqM) Est GFR (CKD-EPI)NonAf >90 (>60 ml/min/1.73 sqM) Glucose 89 (74-99) mg/dL Plasma Lactic Acid Sharath (0.7-2.0) mmol/L Calcium 9.2 (8.4-10.2) mg/dL Phosphorus 3.9 (2.5-4.5) mg/dL Magnesium 2.0 (1.6-2.3) mg/dL Total Bilirubin 0.4 (0.2-1.3) mg/dL AST 25 (14-36) U/L ALT 15 (4-34) U/L Alkaline Phosphatase 83 (38-126) U/L Troponin I (0.000-0.034) ng/mL Total Protein 7.1 (6.3-8.2) g/dL Albumin 4.4 (3.5-5.0) g/dL Urine Color Urine Appearance (Clear) Urine pH (5.0-8.0) Ur Specific [place] (1.001-1.035) Urine Protein (Negative) Urine Glucose (UA) (Negative) Urine Ketones (Negative) Urine Blood (Negative) Urine Nitrite (Negative) Urine Bilirubin (Negative) Urine Urobilinogen (<2.0) mg/dL Ur Leukocyte Esterase (Negative) Urine RBC (0-5) /hpf Urine WBC (0-5) /hpf Ur Squamous Epith Cells (0-4) /hpf Urine Bacteria (None) /hpf Hyaline Casts (0-2) /lpf Urine Mucus (None) /hpf Urine HCG, Qual (Not Detectd) 02/19/23 02/19/23 02/19/23 Range/Units 23:00 23:00 23:31 WBC (3.8-10.6) k/uL RBC (3.80-5.40) m/uL Hgb (11.4-16.0) gm/dL Hct (34.0-46.0) % MCV (80.0-100.0) fL MCH (25.0-35.0) pg MCHC (31.0-37.0) g/dL RDW (11.5-15.5) % Plt Count (150-450) k/uL MPV Neutrophils % % Lymphocytes % % Monocytes % % Eosinophils % % Basophils % % Neutrophils # (1.3-7.7) k/uL Lymphocytes # (1.0-4.8) k/uL Monocytes # (0-1.0) k/uL Eosinophils # (0-0.7) k/uL Basophils # (0-0.2) k/uL PT (9.0-12.0) sec INR (<1.2) APTT (22.0-30.0) sec Sodium (137-145) mmol/L Potassium (3.5-5.1) mmol/L Chloride (98-107) mmol/L Carbon Dioxide (22-30) mmol/L Anion Gap mmol/L BUN (7-17) mg/dL Creatinine (0.52-1.04) mg/dL Est GFR (CKD-EPI)AfAm (>60 ml/min/1.73 sqM) Est GFR (CKD-EPI)NonAf (>60 ml/min/1.73 sqM) Glucose (74-99) mg/dL Plasma Lactic Acid Sharath 0.7 (0.7-2.0) mmol/L Calcium (8.4-10.2) mg/dL Phosphorus (2.5-4.5) mg/dL Magnesium (1.6-2.3) mg/dL Total Bilirubin (0.2-1.3) mg/dL AST (14-36) U/L ALT (4-34) U/L Alkaline Phosphatase (38-126) U/L Troponin I 0.016 (0.000-0.034) ng/mL Total Protein (6.3-8.2) g/dL Albumin (3.5-5.0) g/dL Urine Color Urine Appearance (Clear) Urine pH (5.0-8.0) Ur Specific [place] (1.001-1.035) Urine Protein (Negative) Urine Glucose (UA) (Negative) Urine Ketones (Negative) Urine Blood (Negative) Urine Nitrite (Negative) Urine Bilirubin (Negative) Urine Urobilinogen (<2.0) mg/dL Ur Leukocyte Esterase (Negative) Urine RBC (0-5) /hpf Urine WBC (0-5) /hpf Ur Squamous Epith Cells (0-4) /hpf Urine Bacteria (None) /hpf Hyaline Casts (0-2) /lpf Urine Mucus (None) /hpf Urine HCG, Qual Not Detected (Not Detectd) 02/19/23 02/20/23 Range/Units 23:31 01:05 WBC (3.8-10.6) k/uL RBC (3.80-5.40) m/uL Hgb (11.4-16.0) gm/dL Hct (34.0-46.0) % MCV (80.0-100.0) fL MCH (25.0-35.0) pg MCHC (31.0-37.0) g/dL RDW (11.5-15.5) % Plt Count (150-450) k/uL MPV Neutrophils % % Lymphocytes % % Monocytes % % Eosinophils % % Basophils % % Neutrophils # (1.3-7.7) k/uL Lymphocytes # (1.0-4.8) k/uL Monocytes # (0-1.0) k/uL Eosinophils # (0-0.7) k/uL Basophils # (0-0.2) k/uL PT (9.0-12.0) sec INR (<1.2) APTT (22.0-30.0) sec Sodium (137-145) mmol/L Potassium (3.5-5.1) mmol/L Chloride (98-107) mmol/L Carbon Dioxide (22-30) mmol/L Anion Gap mmol/L BUN (7-17) mg/dL Creatinine (0.52-1.04) mg/dL Est GFR (CKD-EPI)AfAm (>60 ml/min/1.73 sqM) Est GFR (CKD-EPI)NonAf (>60 ml/min/1.73 sqM) Glucose (74-99) mg/dL Plasma Lactic Acid [place]ath (0.7-2.0) mmol/L Calcium (8.4-10.2) mg/dL Phosphorus (2.5-4.5) mg/dL Magnesium (1.6-2.3) mg/dL Total Bilirubin (0.2-1.3) mg/dL AST (14-36) U/L ALT (4-34) U/L Alkaline Phosphatase (38-126) U/L Troponin I <0.012 (0.000-0.034) ng/mL Total Protein (6.3-8.2) g/dL Albumin (3.5-5.0) g/dL Urine Color Yellow Urine Appearance Clear (Clear) Urine pH 6.0 (5.0-8.0) Ur Specific [place] 1.032 (1.001-1.035) Urine Protein 1+ H (Negative) Urine Glucose (UA) Negative (Negative) Urine Ketones Negative (Negative) Urine Blood Negative (Negative) Urine Nitrite Negative (Negative) Urine Bilirubin Negative (Negative) Urine Urobilinogen 2.0 (<2.0) mg/dL Ur Leukocyte Esterase Negative (Negative) Urine RBC 1 (0-5) /hpf Urine WBC 2 (0-5) /hpf Ur Squamous Epith Cells 4 (0-4) /hpf Urine Bacteria Rare H (None) /hpf Hyaline Casts 7 H (0-2) /lpf Urine Mucus Many H (None) /hpf Urine HCG, Qual (Not Detectd) - EKG Data -: EKG Interpreted by Me - Radiology Data Radiology results: report reviewed (Brain CT head and pelvis negative for acute disease lumbar spine positive for disc herniation), image reviewed Disposition Clinical Impression: Vertigo, Dizziness, Back pain, Disk prolapse, Lumbar herniated disc Disposition: HOME SELF-CARE Condition: Fair Instructions (If sedation given, give patient instructions): Lumbar Disc Herniation (ED), Dizziness (ED) Is patient prescribed a controlled substance at d/c from ED?: No Referrals: Blanca Timmons MD [Primary Care Provider] - 1-2 days Time of Disposition: 02:30
[2023-02-19] MEDS ORDERED: SODIUM CHLORIDE 0.9% 1,000 ML IV STA (22:52)
[2023-02-19 23:22] LABS: Basophils % (A) 0 %; Eosinophils # (A) 0.6 k/uL (0-0.7); Eosinophils % (A) 8 %; HCT 40.9 % (34.0-46.0); HGB 13.9 gm/dL (11.4-16.0); Lymphocytes # (A) 4.4 k/uL (1.0-4.8); Lymphocytes % (A) 55 %; MCH 30.4 pg (25.0-35.0); MCHC 33.9 g/dL (31.0-37.0); MCV 89.5 fL (80.0-100.0); Mean Platelet Volume 7.6; Monocytes # (A) 0.5 k/uL (0-1.0); Monocytes % (A) 6 %; Neutrophils # (A) 2.4 k/uL (1.3-7.7); Neutrophils % (A) 30 %; Platelet Count 190 k/uL (150-450); RBC 4.57 m/uL (3.80-5.40); RDW 12.3 % (11.5-15.5)
[2023-02-19 23:27] LABS: Partial Thromboplastin Time 27.2 sec (22.0-30.0); Prothrombin Time 10.9 sec (9.0-12.0)
[2023-02-19 23:37] LABS: ALT 15 U/L (4-34); AST 25 U/L (14-36); African American GFR (CKD) >90 (>60 ml/min/1.73 sqM); Albumin 4.4 g/dL (3.5-5.0); Alkaline Phosphatase 83 U/L (38-126); Anion Gap 8 mmol/L; Blood Urea Nitrogen 8 mg/dL (7-17); Calcium 9.2 mg/dL (8.4-10.2); Carbon Dioxide 24 mmol/L (22-30); Chloride 106 mmol/L (98-107); Glucose 89 mg/dL (74-99); Non-African American GFR(CKD) >90 (>60 ml/min/1.73 sqM); Phosphorus 3.9 mg/dL (2.5-4.5); Potassium 3.9 mmol/L (3.5-5.1); Sodium 138 mmol/L (137-145); Total Bilirubin 0.4 mg/dL (0.2-1.3); Total Protein 7.1 g/dL (6.3-8.2)
[2023-02-19 23:48] LABS: Appearance,Urine Clear (Clear); Bacteria,Urine Rare /hpf; Bilirubin,Urine Negative (Negative); Blood,Urine Negative (Negative); Color,Urine Yellow; Glucose,Urine (UA) Negative (Negative); Hyaline Casts,Urine 7 /lpf (0-2); Ketones,Urine Negative (Negative); Leukocyte Esterase,Urine Negative (Negative); Mucus,Urine Many /hpf; Nitrite,Urine Negative (Negative); Protein,Urine 1+ (Negative); RBC,Urine 1 /hpf (0-5); Specific Gravity,Urine 1.032 (1.001-1.035); Squamous Epithelial Cell,Urine 4 /hpf (0-4); WBC,Urine 2 /hpf (0-5)
--- NOTE | 2023-02-20 00:40 | CT ---
EXAM: CT Head Without Intravenous Contrast CLINICAL HISTORY: ITS.REASON CT Reason: dizzy TECHNIQUE: Axial computed tomography images of the head/brain without intravenous contrast. CTDI is 49.1 mGy and DLP is 1155 mGy-cm. This CT exam was performed using one or more of the following dose reduction techniques: automated exposure control, adjustment of the mA and/or kV according to patient size, and/or use of iterative reconstruction technique. COMPARISON: No relevant prior studies available. FINDINGS: Artifacts: Some motion/beam hardening artifact, at the level of the posterior fossa/brainstem and inferior frontal lobes. Brain: Unremarkable. No hemorrhage. No significant white matter disease. No edema. Ventricles: Unremarkable. No ventriculomegaly. Bones/joints: Unremarkable. No acute fracture. Soft tissues: Unremarkable. Sinuses: Mild paranasal sinus mucosal thickening. No fluid levels. No acute sinusitis. Mastoid air cells: Unremarkable as visualized. No mastoid effusion. IMPRESSION: Some motion/beam hardening artifact. No evidence of acute intracranial abnormality.
--- NOTE | 2023-02-20 00:50 | CT ---
EXAM: CT Lumbar Spine With Intravenous Contrast CLINICAL HISTORY: ITS.REASON CT Reason: back pain, leg numb TECHNIQUE: Axial computed tomography images of the lumbar spine with intravenous contrast. CTDI is 13.1 mGy and DLP is 444 mGy-cm. This CT exam was performed using one or more of the following dose reduction techniques: automated exposure control, adjustment of the mA and/or kV according to patient size, and/or use of iterative reconstruction technique. Contrast amount: 100 mL Isovue-300 COMPARISON: No relevant prior studies available. FINDINGS: Vertebrae: No acute fracture. Discs/spinal canal/neural foramina: Degenerative disc disease from L3- S1. Minimal retrolisthesis of L4 on L5. L3-L4: Mild disc bulge. Mild central canal stenosis. No significant foraminal stenosis. L4-L5: Moderate disc bulge. Query superimposed central protrusion component versus part of the disc bulge. Moderate to severe central canal stenosis. Mild bilateral foraminal stenoses. L5-S1: Mild diffuse disc bulge. No significant stenoses. Soft tissues: Unremarkable. Other findings: Please see separate report regarding CT abdomen pelvis findings, also done today. IMPRESSION: Degenerative disc disease from L3-S1. Moderate disc bulge at L4-L5. Query superimposed central protrusion component versus part of the disc bulge. Moderate to severe central canal stenosis. Mild bilateral foraminal stenoses. Correlate and could consider MRI.
--- NOTE | 2023-02-20 01:24 | CT ---
ADDENDUM - Added by Ricki Nayak M.D. on 02/20/2023 1:51 AM (-07:00) Rectal wall thickening versus partial distention. Limited evaluation. Correlate. EXAM: CT Abdomen and Pelvis With Intravenous Contrast CLINICAL HISTORY: ITS.REASON CT Reason: back pain, leg numb TECHNIQUE: Axial computed tomography images of the abdomen and pelvis with intravenous contrast. CTDI is 26.6 mGy and DLP is 1172.7 mGy-cm. This CT exam was performed using one or more of the following dose reduction techniques: automated exposure control, adjustment of the mA and/or kV according to patient size, and/or use of iterative reconstruction technique. COMPARISON: No relevant prior studies available. FINDINGS: Lung bases: Unremarkable. No mass. No consolidation. ABDOMEN: Liver: Unremarkable. No mass. Gallbladder and bile ducts: Contracted gallbladder. No calcified stones. No ductal dilation. Pancreas: Unremarkable. No mass. No ductal dilation. Spleen: Unremarkable. No splenomegaly. Adrenals: Unremarkable. No mass. Kidneys and ureters: Mild asymmetric fullness of the left renal collecting system. No obstructing calculus or perinephric stranding. Nonspecific. No definite hydronephrosis. Stomach and bowel: Unremarkable. No obstruction. No mucosal thickening. PELVIS: Appendix: Normal appendix. Bladder: Bladder wall thickening versus partial distention. Reproductive: Bilateral tubal ligation clips in the pelvis. Vaginal tampon. ABDOMEN and PELVIS: Intraperitoneal space: Unremarkable. No free air. No significant fluid collection. Bones/joints: Please see separate CT L spine report, also done today. No acute fracture. No dislocation. Soft tissues: Unremarkable. Vasculature: Unremarkable. No abdominal aortic aneurysm. Lymph nodes: Unremarkable. No enlarged lymph nodes. IMPRESSION: Bladder wall thickening versus partial distention. Correlate for cystitis. <MYCVCSECTION> Communications: 02/20/23 01:53 Verify Receipt Verified receipt with Call Canceled
[2023-02-20 02:51] VITALS: BP 105/72; PULSE 78; RESP 17; TEMP 98
== END 2023-02-20 02:51 | disposition home or self-care (01) ==
LOC: EC 22:20
DX: M51.26 Other intervertebral disc displacement, lumbar region (principal); R42 Dizziness and giddiness; M48.061 Spinal stenosis, lumbar region without neurogenic claudication; J45.909 Unspecified asthma, uncomplicated; F17.200 Nicotine dependence, unspecified, uncomplicated; Z88.1 Allergy status to other antibiotic agents
CPT/HCPCS: 36415 ×2; 93005; 80053; 83605; 83735; 84100; 84484 ×2; 85025; 85610; 85730; 81001; 81025; 72132; 70450; 74177; 99285; 96360; 96361; Q9967